=== PATIENT | male | born 1995 | race Caucasian/White ===

== ENCOUNTER 2016-10-22 03:38 | Inpatient (IN) | payer OTHER ==
[~2016-10-22] VITALS: Ht 167.6 cm; Wt 84.7 kg
[2016-10-22 04:07] LABS: MEAN CORPUSCULAR HEMOGLOBIN 29.4 pg (27.0-33.0); MEAN CORPUSCULAR HGB CONC 33.8 g/dl (32.0-36.5); MEAN CORPUSCULAR VOLUME 86.8 fl (80.0-96.0); RED CELL DISTRIBUTION WIDTH 13.2 % (11.5-14.5); WHITE BLOOD COUNT 13.4 K/mm3 (4.0-10.0)
[2016-10-22 04:47] LABS: ALBUMIN 4.5 GM/DL (3.2-5.2); ALBUMIN/GLOBULIN RATIO 1.45 (1.00-1.93); ALKALINE PHOSPHATASE 130 U/L (45-117); ALT/SGPT 33 U/L (12-78); ANION GAP 10 MEQ/L (8-16); AST/SGOT 14 U/L (15-37); BILIRUBIN,DIRECT 0.1 MG/DL (0.0-0.2); BILIRUBIN,TOTAL 0.4 MG/DL (0.2-1.0); BLOOD UREA NITROGEN 17 MG/DL (7-18); CARBON DIOXIDE LEVEL 26 MEQ/L (21-32); CHLORIDE LEVEL 106 MEQ/L (98-107); CREATININE FOR GFR 1.14 MG/DL (0.70-1.30); GLOMERULAR FILTRATION RATE > 60.0 (>60); GLUCOSE, FASTING 120 MG/DL (70-105); POTASSIUM SERUM 4.1 MEQ/L (3.5-5.1); SODIUM LEVEL 142 MEQ/L (136-145); TOTAL PROTEIN 7.6 GM/DL (6.4-8.2)
[2016-10-22 05:14] LABS: AMPHETAMINES LEVEL URINE NEGATIVE (NEGATIVE); BENZODIAZEPINES URINE NEGATIVE (NEGATIVE); COCAINE METABOLITE URINE NEGATIVE (NEGATIVE); CONTROL LINE INT CTR LINE PRESENT; METHADONE URINE NEGATIVE (NEGATIVE); OPIATES URINE NEGATIVE (NEGATIVE); TRICYCLIC ANTIDEPRESS URINE NEGATIVE (NEGATIVE)
[2016-10-22] MEDS ORDERED: MOM 30ML SUSPENSION UDC PO PRN (06:00)
[2016-10-22] MEDS ORDERED: MAALOX 30 ML SUSP *UDC PO PRN (06:00)
[2016-10-22] MEDS ORDERED: LORazepam 1 MG TAB PO PRN (06:00)
--- NOTE | 2016-10-22 09:24 | EDDOCDS ---
Physician Documentation [facility] Name: Ro Smith Age: 21 yrs Sex: Male : 1995 Arrival Date: 10/22/2016 Time: 03:[address] MD: Disposition: 10/22/16 05:56 Hospitalization ordered by Rafat Keane for Inpatient Admission. Preliminary diagnosis is Major depressive disorder, recurrent, moderate. - Bed requested for Admit. - Status is Inpatient Admission. dy - Condition is Stable. - Problem is new. - Symptoms have improved. Historical: - Allergies: Biaxin; - Home Meds: 1. none - PMHx: Depression; - PSHx: Adenoidectomy; Tonsillectomy; Tubes in ears; infected lymph node in neck; - Social history: Smoking status: Patient states was never smoker of tobacco. No barriers to communication noted. - Family history: Not pertinent. - : The pt / caregiver states he / she is not on anticoagulants. Home medication list is obtained from the patient. - Exposure Risk Screening:: None identified. Vital Signs: 10/22 03:50 Weight 68.04 kg / 150 lbs; Height 5 ft. 6 in. (167.64 cm); [facility] 03:52 BP 151 / 90; Pulse 98; Resp 20; Temp 99.0(T); Pulse Ox 96% ; m 09:19 BP 127 / 74; Pulse 92; Resp 16; Temp 98.9(T); Pulse Ox 99% on R/A; dy 03:50 Body Mass Index 24.21 (68.04 kg, 167.64 cm) [facility] MDM: 03:43 Consult PFS/PSA/Vest Baster ordered. fg 03:43 Consult PFS/PSA/Vest Baster: Patient's case requires discussion with on-call fg Psychiatrist ordered. 03:43 PSA/PFS to call Nursing Second Mate, to enter patient data on [place] Safe Act if patient fg involuntarily admitted or transferred for SI or HI ordered. 03:43 Confirm accurate psychiatric medication list and times of last dosage ordered. fg 03:43 Detain Pt Until Medically/PFS Cleared ordered. fg 03:44 Acetaminophen Level Ordered. EDMS 03:44 Basic Metabolic Profile Ordered. EDMS 03:44 Complete Blood Count Ordered. EDMS 03:44 Drug Eval Toxicology ED Only Ordered. EDMS 03:44 Ethyl Alcohol (ethanol) Ordered. EDMS 03:44 Liver Profile Ordered. EDMS 03:44 Salicylate Level Ordered. EDMS 03:44 Thyroid Stimulating Hormone Ordered. EDMS 04:16 Financial registration complete. hs2 04:17 [facility] Payment Agreement was scanned into [employer] and attached to record. hs2 05:14 REGULAR DIET PLASTIC TRUONG+DIET ordered. EDMS 05:22 Consult PFS/PSA/Vest Baster complete. cl 05:22 Consult PFS/PSA/Vest Baster: Patient's case requires discussion with on-call cl Psychiatrist complete. 05:22 PSA/PFS to call Nursing Second Mate, to enter patient data [place] Safe [place] if patient cl involuntarily admitted or transferred for SI or HI complete. 05:56 Admit to IMHU: ordered. EDMS 05:56 REGULAR DIET ordered. EDMS 05:57 [facility] Legal paperwork was scanned into [employer] and attached to record. cl Signatures: Dispatcher [employer] EDW[place] Nish Randall, PSA PSA cl Darrel Mcnamara RN RN dy Hafner, Jane, RN RN Iris Whitaker MD MD Cailin Carvalho, Reg Reg hs2 The chart was reviewed and I authenticate all verbal orders and agree with the evaluation and treatment provided.Attachments: 04:17 [facility] Payment Agreement hs2 MTDD
--- NOTE | 2016-10-22 09:24 | EDDOCDS ---
Nurse's Notes [facility] Name: Ro Smith Age: 21 yrs Sex: Male : 1995 Arrival Date: 10/22/2016 Time: 03:[address] MD: Diagnosis: Major depressive disorder, recurrent, moderate Presentation: 10/22 03:48 Presenting complaint: Patient states: I'm suicidal, I have been for about a month and a [facility] half, thinking of having a car accident. Mental Health Triage Level: Level 2: The patient displays active suicidal ideations. Adult Sepsis Screening: The patient does not have new or worsening altered mentation. Patient's respiratory rate is less than 22. Systolic blood pressure is greater than 100. Patient has a qSOFA score of 0- Negative Sepsis Screen. Suicide/Homicide risk assessment- The patient reports that he/she has a prior history of suicide attempt and/or organized plan. 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 Transition of care: patient was not received from another setting of care. 03:48 Acuity: DAISY Level 3 [facility] 03:48 Method Of Arrival: Walkin/Carried/Asstd [facility] Triage Assessment: 03:50 General: Appears in no apparent distress, Behavior is cooperative, flat. Pain: Denies [facility] pain. HIV screening NA for this visit Offered previously. The patient is triaged at the bedside. See Assessment in Nurses Notes section of ED record. Neurological: Level of Consciousness is awake, alert, Oriented to person, place, time. Respiratory: Airway is patent Respiratory effort is even, unlabored, Respiratory pattern is regular, symmetrical. Derm: Skin is pink, warm & dry. Musculoskeletal: Range of motion intact in all extremities. Historical: - Allergies: Biaxin; - Home Meds: 1. none - PMHx: Depression; - PSHx: Adenoidectomy; Tonsillectomy; Tubes in ears; infected lymph node in neck; - Social history: Smoking status: Patient states was never smoker of tobacco. No barriers to communication noted. - Family history: Not pertinent. - : The pt / caregiver states he / she is not on anticoagulants. Home medication list is obtained from the patient. - Exposure Risk Screening:: None identified. Screenin:52 Screening information is obtained from the patient. Fall risk: No risks identified. [facility] Assistance ADL's: requires no assistance with activities of daily living. Abuse/DV Screen: The patient / caregiver reports he/she is: not in a situation that causes fear, pain or injury. Nutritional screening: No deficits noted. Advance Directives: There is no active DNR order. home support is adequate. Assessment: 03:51 General: Appears in no apparent distress, comfortable, well nourished, well groomed, slm Behavior is anxious. General: chain of command in room . Respiratory: Airway is patent Respiratory effort is even, unlabored. Derm: Skin is pink, warm & dry. 03:52 General: see bedside triage assessment. [facility] 04:05 Pain: Denies pain. Neurological: No deficits noted. EENT: No deficits noted. cf2 Cardiovascular: No deficits noted. GI: No deficits noted. : No deficits noted. Musculoskeletal: No deficits noted. Injury Description: No known injury. 05:06 General: Appears in no apparent distress, Behavior is flat, quiet. General: pt resting slm on stretcher security aid observing . Pain: Denies pain. Neurological: No deficits noted. Level of Consciousness is awake, alert, obeys commands. Respiratory: Airway is patent Respiratory effort is even, unlabored. Derm: Skin is pink, warm & dry. 05:58 Reassessment: Patient appears in no apparent distress at this time. General: Appears to slm be sleeping. Behavior is cooperative. General: security observing . Respiratory: Airway is patent Respiratory effort is even, unlabored. Derm: Skin is pink, warm & dry. 06:45 Reassessment: Patient appears in no apparent distress at this time. General: Appears slm comfortable, Behavior is flat. General: pt resting on stretcher awaiting admission security observing . Respiratory: Airway is patent Respiratory effort is even, unlabored. 07:45 General: Appears in no apparent distress, comfortable, Behavior is appropriate for age, dy cooperative. 08:45 General: Appears in no apparent distress, comfortable, Behavior is appropriate for age, dy cooperative. 08:45 Pain: Denies pain. Neurological: No deficits noted. Respiratory: Airway is patent dy Respiratory effort is even, unlabored. 09:22 General: Appears in no apparent distress, comfortable, Behavior is appropriate for age, dy cooperative. Pain: Denies pain. Respiratory: No deficits noted. 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 Referral Information: cl Evaluation referral is generated by [facility]. The patient was referred for evaluation because Pt expressing SI with plan.. 04:39 [facility] Behavioral Health: The patient is not an established patient of [facility] Behavioral Health. Subjective: The patients chief complaint is Pt is [employer] x 2 1/2 years with one deployment to [place](denies any combat experiences/PTSD), x 1 year, brought to ED by [facility] after pt expressed SI with plan for MVC. Pt appears depressed, poor eye contact, states he "did something really stupid yesterday" and was processed last night at M.P. station, will not elaborate on charges/issues, "I don't want to talk about that right now". Per escort pt. possibly being charged for accessing inappropriate material, found on his phone?(Police apparently have pt.'s phone) Pt however reports feeling depressed x 1 year "since my divorce", also feeling depressed ("stuck") at [place], "I hate my job", has no support in area, family is in [place]. Pt c/o "too much sleep", poor concentration and low energy, denies HI/AH/VH/substance abuse, denies prior psych admissions or suicide attempts, states his plan for suicide was to "wreck my car, hopefully go fast enough". Pt has been in tx at [facility], no current medications.. Delusions are denied. Patient's mood is depressed, Hallucinations are denied. Subjective: Pt reports mother has hx of Bipolar d/o. Mental Health history: depression, Mental Health Admissions: None. Current Outpatient Mental Health Services: Psychiatrist / Agency: [facility]. Current living environment is The patient is . Patient presents to Emergency Department with the following symptoms within the past 2 weeks: antisocial behavior, depressed mood, feelings of helplessness/hopelessness, poor concentration, sleep disturbance - excessive sleeping, suicidal ideation with plan for motor vehicle crash. Substance abuse: Pt denies. Mental status exam: Patients appearance is appropriate, Patient's behavior is superficially cooperative Speech is slow. Affect is blunted Mood is depressed. Hallucinations are denied. Appetite is normal. Memory is good. Energy level is tires easily. Content of thought is depressive. depressive Thought process is intact. Cognitive level is oriented to person, place, time and situation Patient's insight is fair. Judgement is fair. Rapport with interviewer is guarded. Suicidal Ideation present with a plan to kill self by motor vehicle crash. Homicidal ideation is not present. 05:18 Disposition: Medically cleared for disposition by Iris Alvarez MD Psychiatric Consult cl is performed by phone with Dr Rafat Keane. [facility] Admission Criteria: The patient is experiencing suicidal ideation. The patient displays symptoms of severe psychiatric disorder resulting in disordered behavior and significant interference with his / her ability to maintain self care. Psychomotor Retardation. The patient requires continuous observation and/or control to protect self, others or property. The patient's care requires a multi-modal treatment plan under close supervision and coordination due to the complexity and severity of the patient's symptoms. Legal Status: Patient's legal status will be Emergency admission: . [place] Safe Act: [place] Safe Act is applicable to this patient. The patient poses a risk to self or other and the Nursing Train Operations Manager has been notified. He/She will enter the patient's data. DSM-V Differential Diagnosis: Unspecified Depressive Disorder (F32.9). Insurance Pre-Certification: Not Required. Family Notification: Family notified of admission to [facility], Notification was given to BORIS at bedside. 08:57 Awaiting: transfer to [facility]. Vital Signs: 03:50 Weight 68.04 kg; Height 5 ft. 6 in. (167.64 cm); h 03:52 BP 151 / 90; Pulse 98; Resp 20; Temp 99.0(T); Pulse Ox 96% ; m 09:19 BP 127 / 74; Pulse 92; Resp 16; Temp 98.9(T); Pulse Ox 99% on R/A; dy 03:50 Body Mass Index 24.21 (68.04 kg, 167.64 cm) [facility] Vitals: 03:50 Log In Time: October 22, 2016 at 03:38. [facility] ED Course: 03:40 Patient visited by Silvia Fagan. gjb 03:40 Patient moved to Waiting gjb 03:41 Patient moved to [address] 03:43 Melanie Patiño,RN is Primary Nurse. cf2 03:43 Iris Alvarez MD is Attending Physician. fg 03:45 Patient visited by Iris Alvarez MD. fg 03:49 Triage Initiated [facility] 03:52 The patient / caregiver is instructed regarding the plan of care and ED course. cj Accompanied by escort, Patient has correct armband on for positive identification. Placed in psych safe attire. 03:53 Patient visited by Louisa Lr LPN. slm 04:04 Patient visited by Melanie Patiño,SENA. cf2 04:04 No IV's were initiated during this patient's visit. No procedures done that require slm assistance. Labs drawn. (by ED staff). Sent per order to lab. 04:17 [facility] Payment Agreement was scanned into [employer] and attached to record. hs2 04:17 Psych Safety Check: Location: Psych Room. Visual Assessment: Cooperative. jlm 04:18 Patient visited by Lennie Orlando Unit Clerk. jlm 04:28 Patient visited by Lennie Orlando Unit Clerk. jlm 04:28 Psych Safety Check: Location: Psych Room. Visual Assessment: Cooperative. jlm 04:45 Psych Safety Check: Location: Psych Room. Visual Assessment: Restless. jlm 04:47 Patient visited by Lennie Orlando Unit Clerk. jlm 05:01 Drug Eval Toxicology ED Only Sent. slm 05:04 Patient visited by Lennie Orlando Unit Clerk. jlm 05:04 Psych Safety Check: Location: Psych Room. Visual Assessment: Cooperative. jlm 05:07 Patient visited by Louisa Lr LPN. slm 05:29 Patient visited by Lennie Orlando Unit Clerk. jlm 05:49 Patient visited by Lennie Orlando Unit Clerk. jlm 05:56 Rafat Keane is Hospitalizing Provider. fg 05:57 [facility] Legal paperwork was scanned into [employer] and attached to record. cl 05:58 Patient visited by Lennie Orlando Unit Clerk. jlm 05:58 Patient visited by Louisa Lr LPN. slm 06:12 Patient visited by Lennie Orlando Unit Clerk. jlm 06:13 Patient visited by Melanie Patiño,SENA. cf2 06:28 Lights dimmed. Warm blanket given. Psych Safety Check: Location: Psych Room. Visual jlm Assessment: Sleeping. 06:29 Patient visited by Lennie Orlando Link Trainer Maintenance Man. jlm 06:46 Patient visited by Louisa Lr LPN. slm 06:55 Psych Safety Check: Location: Psych Room. Visual Assessment: Sleeping. jlm 06:56 Patient visited by Lennie Orladno Link Trainer Maintenance Man. jlm 07:15 Psych Safety Check: Location: Psych Room. Visual Assessment: Cooperative. pjf 07:18 Patient visited by Porter Salter Security Aide. pjf 07:38 Patient visited by Porter Salter Security Aide. pjf 07:48 Patient visited by Porter Salter Security Aide. pjf 07:53 Patient visited by Porter Salter Security Aide. pjf 08:15 Patient visited by Porter Salter Security Aide. pjf 08:28 Patient visited by Porter Salter Security Aide. pjf 08:43 Patient visited by Porter Salter Security Aide. pjf 08:58 Patient visited by Porter Salter Security Aide. pjf Attachments: 05:57 E Legal paperwork cl Order Results: Lab Order: Acetaminophen Level; SPEC'M 10/22/16 04:00 Test: ACETAMINOPHEN LEVEL; Value: < 2.0; Range: 10.0-30.0; Abnormal: Below low normal; Units: UG/ML; Status: F Lab Order: Basic Metabolic Profile; SPEC'M 10/22/16 04:00 Test: GLUCOSE, FASTING; Value: 120; Range: 70-105; Abnormal: Above high normal; Units: MG/DL; Status: F Test: BLOOD UREA NITROGEN; Value: 17; Range: 7-18; Units: MG/DL; Status: F Test: CREATININE FOR GFR; Value: 1.14; Range: 0.70-1.30; Units: MG/DL; Status: F Test: GLOMERULAR FILTRATION RATE; Value: > 60.0; Range: >60; Status: F Test: SODIUM LEVEL; Value: 142; Range: 136-145; Units: MEQ/L; Status: F Test: POTASSIUM SERUM; Value: 4.1; Range: 3.5-5.1; Units: MEQ/L; Status: F Test: CHLORIDE LEVEL; Value: 106; Range: 98-107; Units: MEQ/L; Status: F Test: CARBON DIOXIDE LEVEL; Value: 26; Range: 21-32; Units: MEQ/L; Status: F Test: ANION GAP; Value: 10; Range: 8-16; Units: MEQ/L; Status: F Test: CALCIUM LEVEL; Value: 9.0; Range: 8.5-10.1; Units: MG/DL; Status: F Test Note: ; Units are mL/min/1.73 m2 Chronic Kidney Disease Staging per NKF: Stage I & II GFR >=60 Normal to Mildly Decreased Stage III GFR 30-59 Moderately Decreased Stage IV GFR 15-29 Severely Decreased Stage V GFR <15 Very Little GFR Left ESRD GFR <15 on VIDEO GAME CREATOR Lab Order: Complete Blood Count; SPEC'10/22/16 04:00 Test: WHITE BLOOD COUNT; Value: 13.4; Range: 4.0-10.0; Abnormal: Above high normal; Units: K/mm3; Status: F Test: RED BLOOD COUNT; Value: 5.46; Range: 4.30-6.10; Units: M/mm3; Status: F Test: HEMOGLOBIN; Value: 16.0; Range: 14.0-18.0; Units: g/dl; Status: F Test: HEMATOCRIT; Value: 47.4; Range: 42.0-52.0; Units: %; Status: F Test: MEAN CORPUSCULAR VOLUME; Value: 86.8; Range: 80.0-96.0; Units: fl; Status: F Test: MEAN CORPUSCULAR HEMOGLOBIN; Value: 29.4; Range: 27.0-33.0; Units: pg; Status: F Test: MEAN CORPUSCULAR HGB CONC; Value: 33.8; Range: 32.0-36.5; Units: g/dl; Status: F Test: RED CELL DISTRIBUTION WIDTH; Value: 13.2; Range: 11.5-14.5; Units: %; Status: F Test: PLATELET COUNT, AUTOMATED; Value: 288; Range: 150-450; Units: k/mm3; Status: F Lab Order: Drug Eval Toxicology ED Only; SPEC'10/22/16 03:59 Test: AMPHETAMINES LEVEL URINE; Value: NEGATIVE; Range: NEGATIVE; Status: F Test: BARBITURATES URINE; Value: NEGATIVE; Range: NEGATIVE; Status: F Test: BENZODIAZEPINES URINE; Value: NEGATIVE; Range: NEGATIVE; Status: F Test: CANNABINOIDS URINE; Value: NEGATIVE; Range: NEGATIVE; Status: F Test: COCAINE METABOLITE URINE; Value: NEGATIVE; Range: NEGATIVE; Status: F Test: METHADONE URINE; Value: NEGATIVE; Range: NEGATIVE; Status: F Test: OPIATES URINE; Value: NEGATIVE; Range: NEGATIVE; Status: F Test: TRICYCLIC ANTIDEPRESS URINE; Value: NEGATIVE; Range: NEGATIVE; Status: F Test Note: ; ALL PRESUMPTIVE POSITIVE FINDINGS ARE UNCONFIRMED NORMAL VALUES THRESHOLD IN NG/ML AMPHETAMINES 1000 METHAMPHETAMINES 1000 BARBITURATES 300 BENZODIAZEPINES 300 CANNABINOIDS (THC) 50 COCAINE METABOLITE 300 METHADONE 300 OPIATES 300 PHENCYCLIDINE 25 TRICYCLIC ANTIDEPRESSANTS 1000 RESULTS ARE FOR MEDICAL PURPOSES ONLY. ALL URINE SPECIMENS WILL BE SAVED FOR 3 DAYS. IF CONFIRMATION OF A PRESUMPTIVE POSTIVE SCREEN RESULT IS DESIRED, CALL CHEMISTRY ([phone]) AND REQUEST URINE TO BE SENT TO REFERENCE LAB. FOR A LIST OF CLOSELY RELATED COMPOUNDS PLEASE CALL THE LAB. Lab Order: Ethyl Alcohol (ethanol); SPEC'M 10/22/16 04:00 Test: ETHYL ALCOHOL (ETHANOL); Value: < 0.003; Range: 0.000-0.010; Units: %; Status: F Lab Order: Liver Profile; SPEC'M 10/22/16 04:00 Test: AST/SGOT; Value: 14; Range: 15-37; Abnormal: Below low normal; Units: U/L; Status: F Test: ALT/SGPT; Value: 33; Range: 12-78; Units: U/L; Status: F Test: ALKALINE PHOSPHATASE; Value: 130; Range: 45-117; Abnormal: Above high normal; Units: U/L; Status: F Test: BILIRUBIN,TOTAL; Value: 0.4; Range: 0.2-1.0; Units: MG/DL; Status: F Test: BILIRUBIN,DIRECT; Value: 0.1; Range: 0.0-0.2; Units: MG/DL; Status: F Test: TOTAL PROTEIN; Value: 7.6; Range: 6.4-8.2; Units: GM/DL; Status: F Test: ALBUMIN; Value: 4.5; Range: 3.2-5.2; Units: GM/DL; Status: F Test: ALBUMIN/GLOBULIN RATIO; Value: 1.45; Range: 1.00-1.93; Status: F Lab Order: Salicylate Level; SPEC'M 10/22/16 04:00 Test: SALICYLATE LEVEL; Value: < 1.7; Range: 5.0-30.0; Abnormal: Below low normal; Units: MG/DL; Status: F Lab Order: Thyroid Stimulating Hormone; SPEC'M 10/22/16 04:00 Test: THYROID STIMULATING HORMONE; Value: 4.180; Range: 0.358-3.740; Abnormal: Above high normal; Units: uIU/ML; Status: F Outcome: 04:04 Property removed, inventory done, secured in belongings bag- placed in locked locker. slm 04:35 Discharge Assessment: patient administered narcotics - no. No special radiology studies slm were completed. 05:56 Decision to Hospitalize by Provider. fg 09:19 The following High Risk Discharge criteria are identified: None. Admitted to Psych dy accompanied by tech, via wheelchair, with chart. Condition: stable. 09:23 Patient left the ED. dy Signatures: Tyler Montague, PSA PSA Nish Parra, PSA PSA Porter Flood, Security Aide SecanastasiyapDarrle Johnston, RN RN Deborah Arias,RN RN timi Louisa Lr,COFFEE ROASTER HELPER COFFEE ROASTER HELPER Lennie Reed, Link Trainer Maintenance Man Unit Iris Segundo MD MD fg Beck, Gabriela gjb Stanton, Hillary, Reg Reg hs2 Melanie Patiño,RN RN cf2 [id number]
--- NOTE | 2016-10-22 12:44 | HPEPDOC ---
Medical History and Physical Date of Admission Oct 22, 2016 at 10:05 History and Physical PCP: [facility] ATTENDING: Dr. Darrel Wong HPI: 21yoM admitted to [facility] for MDD, being medically examined today. No acute medical complaints today. Denies any fevers, chills, weakness, fatigue, ORTIZ, CP, SOB, cough, palpitations, abdominal pain, N/V/D or changes in bowel or bladder habits. 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 ROS: As noted in HPI, otherwise 11pt ROS of systems reviewed and unremarkable PE: GEN: 21yoM, appears stated age. Well-nourished, well developed. No acute distress. Alert and oriented x 3. Pleasant, interactive. HEENT: Normocephalic, atraumatic. Pupils are equal, round, and reactive to light. Extraocular movements are intact. No nystagmus appreciated. Sclera are nonicteric. Conjunctiva without injection. Nose midline. Nasal turbinates without bogginess. EACs both patent BL. TMs both visualized and ward with good cone of light, no bulging or erythema. No facial asymmetry. Moist mucous membranes. Dentition fair. Pharynx pink and moist, no cobblestoning. Neck supple , trachea midline. No lymphadenopathy or thyromegaly appreciated. CHEST: Regular rate and rhythm, +S1, +S2 LUNGS: Clear to auscultation bilaterally. No wheezes, rales, or rhonchi. Breathing appears symmetric and easy. Patient is speaking in full sentences. No accessory muscle use. ABD: Round, soft, non-tender, non-distended. +Bowel sounds throughout. No rebound or guarding. No costovertebral angle tenderness. EXT: Pulses 2+ bilaterally dorsalis pedis and radial. No lower extremity edema appreciated. SKIN: Gypsy, dry, warm. Capillary refill <2sec. No rashes. NEURO: Alert and oriented x 3. Cranial nerves III-XII are intact. No focal deficits appreciated. EKG: pending. A&P: 21yoM admitted to [facility] for MDD 1. Psych. Plan per Psychiatry. Obtain baseline EKG to assure the safety of psychiatric medications as they can prolong the QT interval. 2. Leukocytosis. Patient is afebrile. Asymptomatic. Recheck CBC 3. Follow up with PCP on discharge. [facility] 4. Elevated TSH. Recheck TSH and free T4 5. Staff member present throughout exam, Roshan Moran. Vital Signs Vital Signs Label Value Date Time Patient Temperature 98.9 degrees F 10/22/16 1448 Pulse 92 10/22/16 1448 Respiratory Rate 16 bpm 10/22/16 1448 Blood Pressure Assessment 127/74 (91) 10/22/16 1448 Laboratory Data Labs 24H Laboratory Tests 2 10/22/16 03:59: Urine Amphetamine Level NEGATIVE, Urine Benzodiazepines Screen NEGATIVE, Urine Cannabinoids NEGATIVE, Urine Cocaine Metabolite NEGATIVE, Urine Opiates Screen NEGATIVE, Urine Barbiturates, Qualitative NEGATIVE, Urine Methadone Screen NEGATIVE, Urine Tricyclic Antidepressants NEGATIVE 10/22/16 04:00: Acetaminophen Level < 2.0L, Aspartate Amino Transf (AST/SGOT) 14L, Alanine Aminotransferase (ALT/SGPT) 33, Alkaline Phosphatase 130H, Total Bilirubin 0.4, Direct Bilirubin 0.1, Albumin 4.5, Albumin/Globulin Ratio 1.45, Anion Gap 10, Calcium Level 9.0, Ethyl Alcohol Level < 0.003, Glomerular Filtration Rate > 60.0, Salicylates Level < 1.7L, Thyroid Stimulating Hormone (TSH) 4.180H, Total Protein 7.6 CBC/BMP Laboratory Tests 10/22/16 04:00 Red Blood Count 5.46, Mean Corpuscular Volume 86.8, Mean Corpuscular Hemoglobin 29.4, Mean Corpuscular Hemoglobin Concent 33.8, Red Cell Distribution Width 13.2 Home Medications No Active Prescriptions or Reported Meds Allergies Coded Allergies: Clarithromycin (Unverified Allergy, Intermediate, rash, 10/22/16) Zahira Mcdaniels Oct 22, 2016 12:44
[2016-10-22 14:48] VITALS: BP 127/74
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
[2016-10-22 18:00] VITALS: BP 120/68
[2016-10-23 06:21] VITALS: BP 125/69
[2016-10-23 06:59] LABS: MEAN CORPUSCULAR HEMOGLOBIN 30.1 pg (27.0-33.0); MEAN CORPUSCULAR VOLUME 86.1 fl (80.0-96.0); RED CELL DISTRIBUTION WIDTH 12.4 % (11.5-14.5)
[2016-10-23 07:24] LABS: FREE T4 0.98 NG/DL (0.76-1.46)
[2016-10-23] MEDS: buPROPion **XL** TABLET 150MG (WELLBUTRIN XL) PO SCH (12:53)
--- NOTE | 2016-10-23 13:31 | ECGEPIP ---
Stationary ECG Study [facility] Test Date: 2016-10-23 Pat Name: CHERYLE CHAVEZ Department: Room: [place] [address] Gender: M Manager Wound Care: BIBI : 1995 Requested By: Zahira Mcdaniels Order Number: [id number] Reading MD: Darrel Wong Measurements Intervals [place] Rate: 62 P: 42 GA: 159 QRS: 44 QRSD: 105 T: 0 QT: 366 QTc: 372 Interpretive Statements SINUS RHYTHM Comparison tracing not on file Electronically Signed On 10-23-2016 13:30:41 EST by Darrel Wong
--- NOTE | 2016-10-23 14:06 | IPNPDOC ---
[facility] Progress Note Progress Note DATE: 10/23/16 HISTORY: Patient is observed to be up out of bed and in hallway, talking on phone, visible in milieu, and has been attending some groups. Patient indicates he is feeling "a little better today, I spoke with an unpaid intern who gave me some advice and appears to haven't actually been charged yet." Patient is brighter, no tearfulness today, reports 5/10 anxiety, 7/10 depression, denies current suicidal and homicidal ideation, denies audiovisual hallucinations, and denies urge to engage in self-injurious behavior. Patient indicates he last experienced passive SI last night noting he experienced thoughts of "what would be like if I wasn't here, thought about ways that I could do it, but I had no plan and I'm not planning to do it." Patient denies ever experiencing symptoms of HI and denies all recent symptoms of AVH. Patient's labs were redrawn and thyroid and WBCs are now within normal limits, patient indicates he would like to trial antidepressant medication in effort to reduce symptoms of anxiety and depression. Patient indicates his appetite is stable, states he slept well last night and feels "better rested," remains aware that he has trazodone available to him for sleep as needed, denies nightmares symptoms. Patient reports ongoing challenges with concentration and focus, reports improvement to energy level. Patient states his father is attempting to make arrangements to fly to area to visit with patient and patient has had daily contact with his mother via telephone. VITAL SIGNS: See below. NEW TEST RESULTS: New lab results available on TSH and WBC, within normal limits. On admission, labs indicated elevated WBC, glucose, TSH, alkaline phosphatase. Leukocytosis, patient is afebrile and asymptomatic. AST low on admission. UDS negative on admission. CURRENT MEDICATIONS: See below. MEDICAL HISTORY: Patient denies history of seizure, endorses history of concussions in high school from football, notes he was evaluated by PCM. Patient endorses history of kidney stones and being treated for rhabdomyolysis in past. MENTAL STATUS EXAMINATION: Patient is a 21-year old male, who is cooperative, calm, less disheveled today, overweight, dressed in hospital clothing and appears stated age. Speech: Is normal rate, rhythm, volume, coherent, and spontaneous Thought processes: Clear, goal directed. Rate of thoughts: Normal Thought content: Logical, denies current suicidal or homicidal ideation, denies audiovisual hallucinations and other psychotic symptoms, denies obsessions and compulsions. Abstract reasoning: Within normal limits. Computation: Within normal limits. Associations: Intact. Abnormal or psychotic thoughts: Denies current hallucinations, Delusions, Preoccupation with violence, Homicidal or suicidal ideation, and Obsessions. Judgment: Poor Insight: Fair to poor Oriented to: Time, place and person. Recent and Remote Memory: Intact. Attention Span and Concentration: Limited. Language: Normal. Fund of knowledge: Adequate. 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 Patient is more visible in milieu today and is easily engaged at time of interaction. Patient expresses notable marginal reduction in anxiety secondary to speaking with unpaid intern regarding recent legal events. Patient denies suicidal and homicidal ideation and is able to effectively engage in the safety planning process verbalizing awareness of how to access supportive services on the unit and agreeing to do so if needed. Patient was encouraged to continue participating in unit programming. Patient's repeat lab work indicate TSH and WBCs within normal limits, patient is agreeable to trialing antidepressant medication today, expresses concerns with weight gain. Patient again denies history of mood lability or bipolar disorder. Patient remains aware that he has trazodone and hydroxyzine available to him as needed. Will initiate med trial of Wellbutrin XL 150 mg po q am and will monitor patient's response to medication and titrate as tolerated by patient. Patient reiterates today he wants to be released from the [employer] noting he does not want to some honorable discharge, remains aware that his discharge plan will be to return to [facility] for psychotherapy and medication management services, YELITZA, and IOP evaluation. MANAGEMENT PLAN: Initiate Wellbutrin XL 150 mg by mouth every morning, continue trazodone 50 mg po hs PRN insomnia and Hydroxyzine 50 mg po q 6 hours PRN anxiety Encourage patient to be compliant with medication regimen Maintain safety precautions Patient to attend groups and participate in unit programming to develop coping strategies Engage patient in discharge planning process and arrange meeting with command to evaluate safe discharge planning when appropriate Shoot to attend [place] outpatient behavioral health, YELITZA, and IOP Patient to follow up with [place] [facility] upon discharge Vital Signs/I&O Vital Signs Date Time Temp Pulse Resp B/P Pulse Ox O2 Delivery O2 Flow Rate FiO2 10/23/16 06:21 96.2 87 16 125/69 Laboratory Data 24H Labs Laboratory Tests 2 10/23/16 06:30: Free Thyroxine 0.98, Thyroid Stimulating Hormone (TSH) 2.840 CBC/BMP Laboratory Tests 10/23/16 06:30 Red Blood Count 5.14, Mean Corpuscular Volume 86.1, Mean Corpuscular Hemoglobin 30.1, Mean Corpuscular Hemoglobin Concent 35.0, Red Cell Distribution Width 12.4 Current Medications Current Medications Acetaminophen (Tylenol) 650 mg Q6HP PRN PO HEADACHE or DISCOMFORT; Start at 06:00; Stop 11/21/16 at 05:59 Al Hydrox/Mg Hydrox/Simethicone (Mylanta) 30 ml Q4HP PRN PO HEARTBURN/ INDIGESTION; Start 10/22/16 at 06:00; Stop 11/21/16 at 05:59 Bupropion HCl (Wellbutrin Xl) 150 mg QAM PO Last administered on 10/23/16t 12: 53; Start 10/23/16 at 09:00; Stop 11/22/16 at 08:59 Home Med (Med Rec Complete!) ASDIRECTED XX ; Start 10/22/16 at 07:00; Stop 08/28 at 07:00; Status DC Hydroxyzine HCl (Atarax) 50 mg Q6HP PRN PO ANXIETY; Start 10/22/16 at 12:30; Stop 11/21/16 at 12:29 Lorazepam (Ativan) 1 mg Q4HP PRN PO ANXIETY; Start 10/22/16 at 06:00; Stop at 05:59 Magnesium Hydroxide (Milk Of Magnesia) 30 ml DAILYPRN PRN PO CONSTIPATION; Start 10/22/16 at 06:00; Stop 11/21/16 at 05:59 Trazodone HCl (Desyrel) 50 mg QHSP PRN PO INSOMNIA; Start 10/22/16 at 06:00; Stop 11/21/16 at 05:59 Allergies Coded Allergies: Clarithromycin (Unverified Allergy, Intermediate, rash, 10/22/16) Griselda Bang Oct 23, 2016 14:06
[2016-10-23 18:00] VITALS: BP 135/68
[2016-10-23] MEDS: traZODone 50 MG TAB PO PRN (22:57)
[2016-10-24 06:15] VITALS: BP 103/58
[2016-10-24] MEDS: buPROPion **XL** TABLET 150MG (WELLBUTRIN XL) PO SCH (09:27)
--- NOTE | 2016-10-24 10:24 | EDDOCDS ---
Physician Documentation [facility] Name: Ro Smith Age: 21 yrs Sex: Male : 1995 Arrival Date: 10/22/2016 Time: 03:[address] MD: Disposition: 10/22/16 05:56 Hospitalization ordered by Rafat Keane for Inpatient Admission. Preliminary diagnosis is Major depressive disorder, recurrent, moderate. - Bed requested for Admit. - Status is Inpatient Admission. dy - Condition is Stable. - Problem is new. - Symptoms have improved. Historical: - Allergies: Biaxin; - Home Meds: 1. none - PMHx: Depression; - PSHx: Adenoidectomy; Tonsillectomy; Tubes in ears; infected lymph node in neck; - Social history: Smoking status: Patient states was never smoker of tobacco. No barriers to communication noted. - Family history: Not pertinent. - : The pt / caregiver states he / she is not on anticoagulants. Home medication list is obtained from the patient. - Exposure Risk Screening:: None identified. Vital Signs: 10/22 03:50 Weight 68.04 kg / 150 lbs; Height 5 ft. 6 in. (167.64 cm); [facility] 03:52 BP 151 / 90; Pulse 98; Resp 20; Temp 99.0(T); Pulse Ox 96% ; m 09:19 BP 127 / 74; Pulse 92; Resp 16; Temp 98.9(T); Pulse Ox 99% on R/A; dy 03:50 Body Mass Index 24.21 (68.04 kg, 167.64 cm) [facility] MDM: 03:43 Consult PFS/PSA/Self Defense Instructor ordered. fg 03:43 Consult PFS/PSA/Self Defense Instructor: Patient's case requires discussion with on-call fg Psychiatrist ordered. 03:43 PSA/PFS to call Nursing Mold Operator, to enter patient data on [place] Safe Act if patient fg involuntarily admitted or transferred for SI or HI ordered. 03:43 Confirm accurate psychiatric medication list and times of last dosage ordered. fg 03:43 Detain Pt Until Medically/PFS Cleared ordered. fg 03:44 Acetaminophen Level Ordered. EDMS 03:44 Basic Metabolic Profile Ordered. EDMS 03:44 Complete Blood Count Ordered. EDMS 03:44 Drug Eval Toxicology ED Only Ordered. EDMS 03:44 Ethyl Alcohol (ethanol) Ordered. EDMS 03:44 Liver Profile Ordered. EDMS 03:44 Salicylate Level Ordered. EDMS 03:44 Thyroid Stimulating Hormone Ordered. EDMS 04:16 Financial registration complete. hs2 04:17 [facility] [place] Agreement was scanned into [employer] and attached to record. hs2 05:14 REGULAR DIET PLASTIC TRUONG+DIET ordered. EDMS 05:22 Consult PFS/PSA/Self Defense Instructor complete. cl 05:22 Consult PFS/PSA/Self Defense Instructor: Patient's case requires discussion with on-call cl Psychiatrist complete. 05:22 PSA/PFS to call Nursing Mold Operator, to enter patient data [place] Safe [place] if patient cl involuntarily admitted or transferred for SI or HI complete. 05:56 Admit to IMHU: ordered. EDMS 05:56 REGULAR DIET ordered. EDMS 05:57 [facility] Legal paperwork was scanned into [employer] and attached to record. cl 13:57 T-Sheet-- Draft Copy was scanned into [employer] and attached to record. gb Signatures: Dispatcher [employer] EDMS Nish Randall, PSA PSA cl Arcelia Worrell, Reg Reg gb Darrel Mcnamara RN RN Deborah AriasRN RN [facility] Iris Alvarez MD MD fg Stanton, Hillary, Reg Reg hs2 The chart was reviewed and I authenticate all verbal orders and agree with the evaluation and treatment provided.Attachments: 04:17 [facility] Payment Agreement hs2 13:57 T-Sheet-- Draft Copy gb Chart Complete MTDD
--- NOTE | 2016-10-24 10:24 | EDDOCDS ---
Physician Documentation [facility] Name: Ro Smith Age: 21 yrs Sex: Male : 1995 Arrival Date: 10/22/2016 Time: 03:[address] MD: Disposition: 10/22/16 05:56 Hospitalization ordered by Rafat Keane for Inpatient Admission. Preliminary diagnosis is Major depressive disorder, recurrent, moderate. - Bed requested for Admit. - Status is Inpatient Admission. dy - Condition is Stable. - Problem is new. - Symptoms have improved. Historical: - Allergies: Biaxin; - Home Meds: 1. none - PMHx: Depression; - PSHx: Adenoidectomy; Tonsillectomy; Tubes in ears; infected lymph node in neck; - Social history: Smoking status: Patient states was never smoker of tobacco. No barriers to communication noted. - Family history: Not pertinent. - : The pt / caregiver states he / she is not on anticoagulants. Home medication list is obtained from the patient. - Exposure Risk Screening:: None identified. Vital Signs: 10/22 03:50 Weight 68.04 kg / 150 lbs; Height 5 ft. 6 in. (167.64 cm); [facility] 03:52 BP 151 / 90; Pulse 98; Resp 20; Temp 99.0(T); Pulse Ox 96% ; m 09:19 BP 127 / 74; Pulse 92; Resp 16; Temp 98.9(T); Pulse Ox 99% on R/A; dy 03:50 Body Mass Index 24.21 (68.04 kg, 167.64 cm) [facility] MDM: 03:43 Consult PFS/PSA/Industrial Relations Director ordered. fg 03:43 Consult PFS/PSA/Industrial Relations Director: Patient's case requires discussion with on-call fg Psychiatrist ordered. 03:43 PSA/PFS to call Nursing Beauty Advisor, to [place] data [place] Safe [place] if patient fg involuntarily admitted or transferred for SI or HI ordered. 03:43 Confirm accurate psychiatric medication list and times of last dosage ordered. fg 03:43 Detain Pt Until Medically/PFS Cleared ordered. fg 03:44 Acetaminophen Level Ordered. EDMS 03:44 Basic Metabolic Profile Ordered. EDMS 03:44 Complete Blood Count Ordered. EDMS 03:44 Drug Eval Toxicology ED Only Ordered. EDMS 03:44 Ethyl Alcohol (ethanol) Ordered. EDMS 03:44 Liver Profile Ordered. EDMS 03:44 Salicylate Level Ordered. EDMS 03:44 Thyroid Stimulating Hormone Ordered. EDMS 04:16 Financial registration complete. hs2 04:17 [facility] Payment Agreement was scanned into [employer] and attached to record. hs2 05:14 REGULAR DIET PLASTIC TRUONG+DIET ordered. EDMS 05:22 Consult PFS/PSA/Industrial Relations Director complete. cl 05:22 Consult PFS/PSA/Industrial Relations Director: Patient's case requires discussion with on-call cl Psychiatrist complete. 05:22 PSA/PFS to call Nursing Beauty Advisor, to [place] data [place] if patient cl involuntarily admitted or transferred for SI or HI complete. 05:56 Admit to IMHU: ordered. EDMS 05:56 REGULAR DIET ordered. EDMS 05:57 [facility] Legal paperwork was scanned into m2fx and attached to record. cl 13:57 T-Sheet-- Draft Copy was scanned into m2fx and attached to record. gb Signatures: Dispatcher [employer] EDMS Nish Randall, PSA PSA cl Arcelia Worrell, Reg Reg gb Darrel Mcnamara RN RN Deborah AriasRN RN [facility] Iris Alvarez MD MD fg Stanton, Hillary, Reg Reg hs2 The chart was reviewed and I authenticate all verbal orders and agree with the evaluation and treatment provided.Attachments: 04:17 [facility] Payment Agreement hs2 13:57 T-Sheet-- Draft Copy gb Chart Complete MTDD
--- NOTE | 2016-10-24 10:24 | EDDOCDS ---
Nurse's Notes [facility] Name: Ro Smith Age: 21 yrs Sex: Male : 1995 Arrival Date: 10/22/2016 Time: 03:[address] MD: Diagnosis: Major depressive disorder, recurrent, moderate Presentation: 10/22 03:48 Presenting complaint: Patient states: I'm suicidal, I have been for about a month and a [facility] half, thinking of having a car accident. Mental Health Triage Level: Level 2: The patient displays active suicidal ideations. Adult Sepsis Screening: The patient does not have new or worsening altered mentation. Patient's respiratory rate is less than 22. Systolic blood pressure is greater than 100. Patient has a qSOFA score of 0- Negative Sepsis Screen. Suicide/Homicide risk assessment- The patient reports that he/she has a prior history of suicide attempt and/or organized plan. 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 Transition of care: patient was not received from another setting of care. 03:48 Acuity: DAISY Level 3 [facility] 03:48 Method Of Arrival: Walkin/Carried/Asstd [facility] Triage Assessment: 03:50 General: Appears in no apparent distress, Behavior is cooperative, flat. Pain: Denies [facility] pain. HIV screening NA for this visit Offered previously. The patient is triaged at the bedside. See Assessment in Nurses Notes section of ED record. Neurological: Level of Consciousness is awake, alert, Oriented to person, place, time. Respiratory: Airway is patent Respiratory effort is even, unlabored, Respiratory pattern is regular, symmetrical. Derm: Skin is pink, warm & dry. Musculoskeletal: Range of motion intact in all extremities. Historical: - Allergies: Biaxin; - Home Meds: 1. none - PMHx: Depression; - PSHx: Adenoidectomy; Tonsillectomy; Tubes in ears; infected lymph node in neck; - Social history: Smoking status: Patient states was never smoker of tobacco. No barriers to communication noted. - Family history: Not pertinent. - : The pt / caregiver states he / she is not on anticoagulants. Home medication list is obtained from the patient. - Exposure Risk Screening:: None identified. Screenin:52 Screening information is obtained from the patient. Fall risk: No risks identified. [facility] Assistance ADL's: requires no assistance with activities of daily living. Abuse/DV Screen: The patient / caregiver reports he/she is: not in a situation that causes fear, pain or injury. Nutritional screening: No deficits noted. Advance Directives: There is no active DNR order. home support is adequate. Assessment: 03:51 General: Appears in no apparent distress, comfortable, well nourished, well groomed, slm Behavior is anxious. General: chain of command in room . Respiratory: Airway is patent Respiratory effort is even, unlabored. Derm: Skin is pink, warm & dry. 03:52 General: see bedside triage assessment. [facility] 04:05 Pain: Denies pain. Neurological: No deficits noted. EENT: No deficits noted. cf2 Cardiovascular: No deficits noted. GI: No deficits noted. : No deficits noted. Musculoskeletal: No deficits noted. Injury Description: No known injury. 05:06 General: Appears in no apparent distress, Behavior is flat, quiet. General: pt resting slm on stretcher security aid observing . Pain: Denies pain. Neurological: No deficits noted. Level of Consciousness is awake, alert, obeys commands. Respiratory: Airway is patent Respiratory effort is even, unlabored. Derm: Skin is pink, warm & dry. 05:58 Reassessment: Patient appears in no apparent distress at this time. General: Appears to slm be sleeping. Behavior is cooperative. General: security observing . Respiratory: Airway is patent Respiratory effort is even, unlabored. Derm: Skin is pink, warm & dry. 06:45 Reassessment: Patient appears in no apparent distress at this time. General: Appears slm comfortable, Behavior is flat. General: pt resting on stretcher awaiting admission security observing . Respiratory: Airway is patent Respiratory effort is even, unlabored. 07:45 General: Appears in no apparent distress, comfortable, Behavior is appropriate for age, dy cooperative. 08:45 General: Appears in no apparent distress, comfortable, Behavior is appropriate for age, dy cooperative. 08:45 Pain: Denies pain. Neurological: No deficits noted. Respiratory: Airway is patent dy Respiratory effort is even, unlabored. 09:22 General: Appears in no apparent distress, comfortable, Behavior is appropriate for age, dy cooperative. Pain: Denies pain. Respiratory: No deficits noted. 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 Referral Information: cl Evaluation referral is generated by [facility]. The patient was referred for evaluation because Pt expressing SI with plan.. 04:39 [facility] Behavioral Health: The patient is not an established patient of [facility] Behavioral Health. Subjective: The patients chief complaint is Pt is [employer] x 2 1/2 years with one deployment to [place](denies any combat experiences/PTSD), x 1 year, brought to ED by [facility] after pt expressed SI with plan for MVC. Pt appears depressed, poor eye contact, states he "did something really stupid yesterday" and was processed last night at M.P. station, will not elaborate on charges/issues, "I don't want to talk about that right now". Per escort pt. possibly being charged for accessing inappropriate material, found on his phone?(Police apparently have pt.'s phone) Pt however reports feeling depressed x 1 year "since my divorce", also feeling depressed ("stuck") at [employer], "I hate my job", has no support in area, family is in [place]. Pt c/o "too much sleep", poor concentration and low energy, denies HI/AH/VH/substance abuse, denies prior psych admissions or suicide attempts, states his plan for suicide was to "wreck my car, hopefully go fast enough". Pt has been in tx at [facility], no current medications.. Delusions are denied. Patient's mood is depressed, Hallucinations are denied. Subjective: Pt reports mother has hx of Bipolar d/o. Mental Health history: depression, Mental Health Admissions: None. Current Outpatient Mental Health Services: Psychiatrist / Agency: [facility]. Current living environment is The patient is . Patient presents to Emergency Department with the following symptoms within the past 2 weeks: antisocial behavior, depressed mood, feelings of helplessness/hopelessness, poor concentration, sleep disturbance - excessive sleeping, suicidal ideation with plan for motor vehicle crash. Substance abuse: Pt denies. Mental status exam: Patients appearance is appropriate, Patient's behavior is superficially cooperative Speech is slow. Affect is blunted Mood is depressed. Hallucinations are denied. Appetite is normal. Memory is good. Energy level is tires easily. Content of thought is depressive. depressive Thought process is intact. Cognitive level is oriented to person, place, time and situation Patient's insight is fair. Judgement is fair. Rapport with interviewer is guarded. Suicidal Ideation present with a plan to kill self by motor vehicle crash. Homicidal ideation is not present. 05:18 Disposition: Medically cleared for disposition by Iris Alvarez MD Psychiatric Consult cl is performed by phone with Dr Rafat Keane. [facility] Admission Criteria: The patient is experiencing suicidal ideation. The patient displays symptoms of severe psychiatric disorder resulting in disordered behavior and significant interference with his / her ability to maintain self care. Psychomotor Retardation. The patient requires continuous observation and/or control to protect self, others or property. The patient's care requires a multi-modal treatment plan under close supervision and coordination due to the complexity and severity of the patient's symptoms. Legal Status: Patient's legal status will be Emergency admission: . [place] Safe Act: [place] Safe Act is applicable to this patient. The patient poses a risk to self or other and the Nursing Grocery Caddy has been notified. He/She will enter the patient's data. DSM-V Differential Diagnosis: Unspecified Depressive Disorder (F32.9). Insurance Pre-Certification: Not Required. Family Notification: Family notified of admission to [facility], Notification was given to BORIS at bedside. 08:57 Awaiting: transfer to [facility]. 09:49 Awaiting: transfer to [facility]. Vital Signs: 03:50 Weight 68.04 kg; Height 5 ft. 6 in. (167.64 cm); [facility] 03:52 BP 151 / 90; Pulse 98; Resp 20; Temp 99.0(T); Pulse Ox 96% ; m 09:19 BP 127 / 74; Pulse 92; Resp 16; Temp 98.9(T); Pulse Ox 99% on R/A; dy 03:50 Body Mass Index 24.21 (68.04 kg, 167.64 cm) [facility] Vitals: 03:50 Log In Time: October 22, 2016 at 03:38. [facility] ED Course: 03:40 Patient visited by Silvia Fagan. gjb 03:40 Patient moved to Waiting gjb 03:41 Patient moved to [address] 03:43 Melanie Patiño,SENA is Primary Nurse. cf2 03:43 Iris Alvarez MD is Attending Physician. fg 03:45 Patient visited by Iris Alvarez MD. fg 03:49 Triage Initiated cj 03:52 The patient / caregiver is instructed regarding the plan of care and ED course. cjh Accompanied by escort, Patient has correct armband on for positive identification. Placed in psych safe attire. 03:53 Patient visited by Louisa Lr LPN. slm 04:04 Patient visited by Melanie Patiño,SENA. cf2 04:04 No IV's were initiated during this patient's visit. No procedures done that require slm assistance. Labs drawn. (by ED staff). Sent per order to lab. 04:17 [facility] Payment Agreement was scanned into [employer] and attached to record. hs2 04:17 Psych Safety Check: Location: Psych Room. Visual Assessment: Cooperative. jlm 04:18 Patient visited by Lennie Orlando Unit Clerk. jlm 04:28 Patient visited by Lennie Orlando Unit Clerk. jlm 04:28 Psych Safety Check: Location: Psych Room. Visual Assessment: Cooperative. jlm 04:45 Psych Safety Check: Location: Psych Room. Visual Assessment: Restless. jlm 04:47 Patient visited by Lennie Orlando Unit Clerk. jlm 05:01 Drug Eval Toxicology ED Only Sent. slm 05:04 Patient visited by Lennie Orlando Unit Clerk. jlm 05:04 Psych Safety Check: Location: Psych Room. Visual Assessment: Cooperative. jlm 05:07 Patient visited by Louisa Lr LPN. slm 05:29 Patient visited by Lennie Orlando Unit Clerk. jlm 05:49 Patient visited by Lennie Orlando Unit Clerk. jlm 05:56 Rafat Keane is Hospitalizing Provider. fg 05:57 [facility] Legal paperwork was scanned into [employer] and attached to record. cl 05:58 Patient visited by Lennie Orlando Unit Clerk. jlm 05:58 Patient visited by Louisa Lr LPN. slm 06:12 Patient visited by Lennie Orlando Unit Clerk. jlm 06:13 Patient visited by Melanie Patiño,SENA. cf2 06:28 Lights dimmed. Warm blanket given. Psych Safety Check: Location: Psych Room. Visual jlm Assessment: Sleeping. 06:29 Patient visited by Lennie Orlando Unit Clerk. jlm 06:46 Patient visited by Louisa Lr LPN. slm 06:55 Psych Safety Check: Location: Psych Room. Visual Assessment: Sleeping. jlm 06:56 Patient visited by Lennie Orlando Unit Clerk. jlm 07:15 Psych Safety Check: Location: Psych Room. Visual Assessment: Cooperative. pjf 07:18 Patient visited by Porter Salter Security Aide. pjf 07:38 Patient visited by Porter Salter Security Aminata. pjf 07:48 Patient visited by Porter Salter Security Aminata. pjf 07:53 Patient visited by Porter Salter Security Aminata. pjf 08:15 Patient visited by Porter Salter Security Aminata. pjf 08:28 Patient visited by Porter Salter Security Aminata. pjf 08:43 Patient visited by Porter Salter Security Aminata. pjf 08:58 Patient visited by Porter Salter Security Aide. pjf 13:57 T-Sheet-- Draft Copy was scanned into [employer] and attached to record. Attachments: 05:57 [facility] Legal paperwork cl Order Results: Lab Order: Acetaminophen Level; SPEC'M 10/22/16 04:00 Test: ACETAMINOPHEN LEVEL; Value: < 2.0; Range: 10.0-30.0; Abnormal: Below low normal; Units: UG/ML; Status: F Lab Order: Basic Metabolic Profile; SPEC'M 10/22/16 04:00 Test: GLUCOSE, FASTING; Value: 120; Range: 70-105; Abnormal: Above high normal; Units: MG/DL; Status: F Test: BLOOD UREA NITROGEN; Value: 17; Range: 7-18; Units: MG/DL; Status: F Test: CREATININE FOR GFR; Value: 1.14; Range: 0.70-1.30; Units: MG/DL; Status: F Test: GLOMERULAR FILTRATION RATE; Value: > 60.0; Range: >60; Status: F Test: SODIUM LEVEL; Value: 142; Range: 136-145; Units: MEQ/L; Status: F Test: POTASSIUM SERUM; Value: 4.1; Range: 3.5-5.1; Units: MEQ/L; Status: F Test: CHLORIDE LEVEL; Value: 106; Range: 98-107; Units: MEQ/L; Status: F Test: CARBON DIOXIDE LEVEL; Value: 26; Range: 21-32; Units: MEQ/L; Status: F Test: ANION GAP; Value: 10; Range: 8-16; Units: MEQ/L; Status: F Test: CALCIUM LEVEL; Value: 9.0; Range: 8.5-10.1; Units: MG/DL; Status: F Test Note: ; Units are mL/min/1.73 m2 Chronic Kidney Disease Staging per NKF: Stage I & II GFR >=60 Normal to Mildly Decreased Stage III GFR 30-59 Moderately Decreased Stage IV GFR 15-29 Severely Decreased Stage V GFR <15 Very Little GFR Left ESRD GFR <15 on INSTRUMENTATION AND CONTROLS DESIGNER Lab Order: Complete Blood Count; [facility]10/[facility] 04:00 Test: WHITE BLOOD COUNT; Value: 13.4; Range: 4.0-10.0; Abnormal: Above high normal; Units: K/mm3; Status: F Test: RED BLOOD COUNT; Value: 5.46; Range: 4.30-6.10; Units: M/mm3; Status: F Test: HEMOGLOBIN; Value: 16.0; Range: 14.0-18.0; Units: g/dl; Status: F Test: HEMATOCRIT; Value: 47.4; Range: 42.0-52.0; Units: %; Status: F Test: MEAN CORPUSCULAR VOLUME; Value: 86.8; Range: 80.0-96.0; Units: fl; Status: F Test: MEAN CORPUSCULAR HEMOGLOBIN; Value: 29.4; Range: 27.0-33.0; Units: pg; Status: F Test: MEAN CORPUSCULAR HGB CONC; Value: 33.8; Range: 32.0-36.5; Units: g/dl; Status: F Test: RED CELL DISTRIBUTION WIDTH; Value: 13.2; Range: 11.5-14.5; Units: %; Status: F Test: PLATELET COUNT, AUTOMATED; Value: 288; Range: 150-450; Units: k/mm3; Status: F Lab Order: Drug Eval Toxicology ED Only; SPEC'M 10/22/16 03:59 Test: AMPHETAMINES LEVEL URINE; Value: NEGATIVE; Range: NEGATIVE; Status: F Test: BARBITURATES URINE; Value: NEGATIVE; Range: NEGATIVE; Status: F Test: BENZODIAZEPINES URINE; Value: NEGATIVE; Range: NEGATIVE; Status: F Test: CANNABINOIDS URINE; Value: NEGATIVE; Range: NEGATIVE; Status: F Test: COCAINE METABOLITE URINE; Value: NEGATIVE; Range: NEGATIVE; Status: F Test: METHADONE URINE; Value: NEGATIVE; Range: NEGATIVE; Status: F Test: OPIATES URINE; Value: NEGATIVE; Range: NEGATIVE; Status: F Test: TRICYCLIC ANTIDEPRESS URINE; Value: NEGATIVE; Range: NEGATIVE; Status: F Test Note: ; ALL PRESUMPTIVE POSITIVE FINDINGS ARE UNCONFIRMED NORMAL VALUES THRESHOLD IN NG/ML AMPHETAMINES 1000 METHAMPHETAMINES 1000 BARBITURATES 300 BENZODIAZEPINES 300 CANNABINOIDS (THC) 50 COCAINE METABOLITE 300 METHADONE 300 OPIATES 300 PHENCYCLIDINE 25 TRICYCLIC ANTIDEPRESSANTS 1000 RESULTS ARE FOR MEDICAL PURPOSES ONLY. ALL URINE SPECIMENS WILL BE SAVED FOR 3 DAYS. IF CONFIRMATION OF A PRESUMPTIVE POSTIVE SCREEN RESULT IS DESIRED, CALL CHEMISTRY ([phone]) AND REQUEST URINE TO BE SENT TO REFERENCE LAB. FOR A LIST OF CLOSELY RELATED COMPOUNDS PLEASE CALL THE LAB. Lab Order: Ethyl Alcohol (ethanol); SPEC'M 10/22/16 04:00 Test: ETHYL ALCOHOL (ETHANOL); Value: < 0.003; Range: 0.000-0.010; Units: %; Status: F Lab Order: Liver Profile; SPEC'M 10/22/16 04:00 Test: AST/SGOT; Value: 14; Range: 15-37; Abnormal: Below low normal; Units: U/L; Status: F Test: ALT/SGPT; Value: 33; Range: 12-78; Units: U/L; Status: F Test: ALKALINE PHOSPHATASE; Value: 130; Range: 45-117; Abnormal: Above high normal; Units: U/L; Status: F Test: BILIRUBIN,TOTAL; Value: 0.4; Range: 0.2-1.0; Units: MG/DL; Status: F Test: BILIRUBIN,DIRECT; Value: 0.1; Range: 0.0-0.2; Units: MG/DL; Status: F Test: TOTAL PROTEIN; Value: 7.6; Range: 6.4-8.2; Units: GM/DL; Status: F Test: ALBUMIN; Value: 4.5; Range: 3.2-5.2; Units: GM/DL; Status: F Test: ALBUMIN/GLOBULIN RATIO; Value: 1.45; Range: 1.00-1.93; Status: F Lab Order: Salicylate Level; SPEC'M 10/22/16 04:00 Test: SALICYLATE LEVEL; Value: < 1.7; Range: 5.0-30.0; Abnormal: Below low normal; Units: MG/DL; Status: F Lab Order: Thyroid Stimulating Hormone; SPEC'M 10/22/16 04:00 Test: THYROID STIMULATING HORMONE; Value: 4.180; Range: 0.358-3.740; Abnormal: Above high normal; Units: uIU/ML; Status: F Outcome: 04:04 Property removed, inventory done, secured in belongings bag- placed in locked locker. [facility] 04:35 Discharge Assessment: patient administered narcotics - no. No special radiology studies slm were completed. 05:56 Decision to Hospitalize by Provider. fg 09:19 The following High Risk Discharge criteria are identified: None. Admitted to Psych dy accompanied by tech, via wheelchair, with chart. Condition: stable. 09:23 Patient left the ED. dy Signatures: Tyler Montague, PSA PSA ac Nish Randall, PSA PSA cl Arcelia Worrell, Reg Reg Porter Salter, Security Aide LuisDarrel Villanueva, RN RN Deborah AriasRN RN Louisa Herrera LPN LPN slLennie eRed, Claims Clerk Unit Iris Segundo MD MD fg Beck, Gabriela gjb Stanton, Hillary, Reg Reg hs2 Melanie aPtiño,RN RN cf2 Chart Complete MTDD
--- NOTE | 2016-10-24 17:36 | IPNPDOC ---
[facility] Progress Note Progress Note DATE OF SERVICE: 10/24/16 HISTORY: Patient is observed to be resting in bed between groups, sits up readily to engage with adjusto writer operator. Patient appears brighter today reports 4/10 anxiety, 5/10 depression, exhibits no tearfulness today, denies current suicidal and homicidal ideation but indicates experienced passive suicidal ideation last night with no specific plan or intent. Patient denies audiovisual hallucinations and denies urge to engage in self-injurious behavior. Patient has now taken Wellbutrin XL 150 mg by mouth 2, indicates medication may be helping him feel "a little better, it' s easier not to feel depressed and a little easier to distract myself." Patient denies medication side effects. Patient indicates his appetite is stable, states he slept well last night with use of trazodone, denies nightmares symptoms. Patient reports ongoing challenges with concentration and focus, reports improvement to energy level. Patient indicates he is maintaining daily contact with his mother. VITAL SIGNS: See below. NEW TEST RESULTS: New lab results available on TSH and WBC, within normal limits. On admission, labs indicated elevated WBC, glucose, TSH, alkaline phosphatase. Leukocytosis, patient is afebrile and asymptomatic. AST low on admission. UDS negative on admission. EKG 10/23/16 SINUS RHYTHM CURRENT MEDICATIONS: See below. MEDICAL HISTORY: Patient denies history of seizure, endorses history of concussions in high school from football, notes he was evaluated by PCM. Patient endorses history of kidney stones and being treated for rhabdomyolysis in past. MENTAL STATUS EXAMINATION: Patient is a 21-year old male, who is cooperative, calm, less disheveled today, dressed in hospital clothing and appears stated age. Speech: Is normal rate, rhythm, volume, coherent, and spontaneous Thought processes: Clear, goal directed. Rate of thoughts: Normal Thought content: Logical, denies current suicidal or homicidal ideation, denies audiovisual hallucinations and other psychotic symptoms, denies obsessions and compulsions. Abstract reasoning: Within normal limits. Computation: Within normal limits. Associations: Intact. Abnormal or psychotic thoughts: Denies current hallucinations, Delusions, Preoccupation with violence, Homicidal or suicidal ideation, and Obsessions. Judgment: Poor Insight: Fair to poor Oriented to: Time, place and person. Recent and Remote Memory: Intact. Attention Span and Concentration: Limited. Language: Normal. Fund of knowledge: Adequate. 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 Patient expresses ongoing reduction in and times of anxiety and depression, denies any new developments in his legal challenges. Patient denies suicidal and homicidal ideation and is able to effectively engage in the safety planning process verbalizing awareness of how to access supportive services on the unit and agreeing to do so if needed. Patient was encouraged to continue participating in unit programming. Patient is requesting to continue Wellbutrin XL med trial, remains aware that he has trazodone and hydroxyzine available to him as needed. Will continue to monitor patient's response to Wellbutrin XL 150 mg po q am and will titrate as tolerated by patient. Patient reiterates today he wants to be released from the [employer] noting he does not want to dishonorable discharge, remains aware that his discharge plan will be to return to [facility] outpatient behavioral health for psychotherapy and medication management services, YELITZA, and IOP evaluation. MANAGEMENT PLAN: Continue Wellbutrin XL 150 mg by mouth every morning, continue trazodone 50 mg po hs PRN insomnia and Hydroxyzine 50 mg po q 6 hours PRN anxiety Maintain safety precautions Patient to attend groups and participate in unit programming to develop coping strategies Engage patient in discharge planning process and arrange meeting with command to evaluate safe discharge planning when appropriate Patient to attend [facility] outpatient behavioral health, YELITZA, and IOP Patient to follow up with [facility] upon discharge Vital Signs/I&O Vital Signs Date Time Temp Pulse Resp B/P Pulse Ox O2 Delivery O2 Flow Rate FiO2 10/24/16 06:15 96.4 71 16 103/58 Current Medications Current Medications Acetaminophen (Tylenol) 650 mg Q6HP PRN PO HEADACHE or DISCOMFORT; Start at 06:00; Stop 11/21/16 at 05:59 Al Hydrox/Mg Hydrox/Simethicone (Mylanta) 30 ml Q4HP PRN PO HEARTBURN/ INDIGESTION; Start 10/22/16 at 06:00; Stop 11/21/16 at 05:59 Bupropion HCl (Wellbutrin Xl) 150 mg QAM PO Last administered on 10/24/16 09: 27; Start 10/23/16 at 09:00; Stop 11/22/16 at 08:59 Home Med (Med Rec Complete!) ASDIRECTED XX ; Start 10/22/16 at 07:00; Stop 08/28 at 07:00; Status DC Hydroxyzine HCl (Atarax) 50 mg Q6HP PRN PO ANXIETY; Start 10/22/16 at 12:30; Stop 11/21/16 at 12:29 Lorazepam (Ativan) 1 mg Q4HP PRN PO ANXIETY; Start 10/22/16 at 06:00; Stop at 05:59 Magnesium Hydroxide (Milk Of Magnesia) 30 ml DAILYPRN PRN PO CONSTIPATION; Start 10/22/16 at 06:00; Stop 11/21/16 at 05:59 Trazodone HCl (Desyrel) 50 mg QHSP PRN PO INSOMNIA Last administered on 22:57; Start 10/22/16 at 06:00; Stop 11/21/16 at 05:59 Allergies Coded Allergies: Clarithromycin (Unverified Allergy, Intermediate, rash, 10/22/16) Griselda Bang Oct 24, 2016 17:36
[2016-10-24 18:00] VITALS: BP 120/64
[2016-10-25 06:25] VITALS: BP 118/57
[2016-10-25] MEDS: buPROPion **XL** TABLET 150MG (WELLBUTRIN XL) PO SCH (08:43)
[2016-10-25 18:00] VITALS: BP 125/64
[2016-10-26 06:18] VITALS: BP 119/88
[2016-10-26] MEDS: buPROPion **XL** TABLET 150MG (WELLBUTRIN XL) PO SCH (09:11)
--- NOTE | 2016-10-26 09:30 | IPN ---
DATE: 10/25/2016 The patient today states that "I'm feeling emotional today. I'm thinking about my family and missing them." His mood is still depressed. His mood is 6 or 7 out of 10, where the closer to 10 is the most depressed. He is still having some hopelessness. He is sleeping better even without the trazodone. He said when he tried the trazodone, "it knocked me out." Mood is depressed with fleeting suicidal ideations but without any plan. MENTAL STATUS EXAMINATION: He is alert and oriented times three. Eye contact is fair. Psychomotor activity is normal. There is no formal thought disorder noted. Mood is depressed. Affect full range and appropriate. He is not psychotic. Insight and judgment poor. DIAGNOSIS: Major depressive disorder, recurrent, moderate. Rule out unspecified mood disorder. Rule out alcohol use disorder. TREATMENT PLAN: We will observe and evaluate this patient for continued resolution of his suicidal ideation and elevation of his mood, and we will continue to titrate the medications as indicated. LESLY
[2016-10-26] MEDS: hydrOXYzine 50 MG TAB PO PRN (13:06)
[2016-10-26 18:00] VITALS: BP 123/60
[2016-10-26] MEDS: traZODone 50 MG TAB PO PRN (23:28)
--- NOTE | 2016-10-27 01:31 | IPN ---
DATE OF SERVICE: 10/26/2016 The patient today states, "I'm okay." He says he is still having some mild depression and occasionally has some fleeting suicidal thoughts, but he says "I'm able to distract myself and they go away." MENTAL STATUS EXAMINATION: The patient is alert and oriented times three. Eye contact is fair. Psychomotor activity is normal. He is verbally spontaneous. There is no formal thought disorder. He says his mood is "okay." Affect is constricted, but appropriate to his mood. He is not psychotic. He denies suicidal, homicidal ideation. Concentration is fair. Memory is intact. Insight and judgment is poor. DIAGNOSIS: Major depressive disorder, recurrent, moderate. Rule out alcohol use disorder. TREATMENT PLAN: At this point, we will further observe and evaluate this patient for continued elevation and stabilization of his mood. We will continue to monitor him for continued resolution of suicidal ideation. He is tolerating his medications well. We will continue to titrate as indicated.
[2016-10-27 06:00] VITALS: BP 134/78
[2016-10-27] MEDS: buPROPion **XL** TABLET 150MG (WELLBUTRIN XL) PO SCH (08:40)
[2016-10-27] MEDS: ACETAMINOPHEN TAB 650MG DOSE (2X325MG) PO PRN (08:41)
[2016-10-27 18:00] VITALS: BP 126/60
--- NOTE | 2016-10-27 18:49 | IPNPDOC ---
[facility] Progress Note Progress Note DATE OF SERVICE: 10/27/16 HISTORY: Patient is observed to be resting in bed between groups, sits up readily and meets with ghost writer in office. Patient indicates he feels "better," but states today he is feeling "numb." Patient rates current anxiety level as 4/ 10, depression he is unable to assess, denies suicidal and homicidal ideation, denies audiovisual hallucinations, denies urge to engage in self-injurious behavior. Patient indicates he last experienced passive suicidal ideation last night, is unable to provide ghost writer with details, notes however, he experienced no plan or intent at that time. Patient denies mood lability, exhibits no tearfulness today. Patient attributes feeling "numb" to his grandfather is undergoing surgery related to cancer today and he is awaiting outcome. Patient continues to take Wellbutrin XL 150 mg po q am, indicates medication is helping to reduce symptoms of anxiety and depression and notes when he does experience passive suicidal ideation, medication helps him to "pass the thoughts by." Patient utilize hydroxyzine 50 mg 1 on 10/26/15 to address symptoms of increased anxiety, notes medication was effective. Patient denies medication side effects. Patient indicates his appetite is stable, sleep is good with no nightmares symptoms. Patient reports ongoing challenges with concentration and focus, reports reduced energy level today. Patient indicates he is maintaining daily contact with his mother. VITAL SIGNS: See below. NEW TEST RESULTS: New lab results available on TSH and WBC, within normal limits. On admission, labs indicated elevated WBC, glucose, TSH, alkaline phosphatase. Leukocytosis, patient is afebrile and asymptomatic. AST low on admission. UDS negative on admission. EKG 10/23/16 SINUS RHYTHM CURRENT MEDICATIONS: See below. MEDICAL HISTORY: Patient denies history of seizure, endorses history of concussions in high school from football, notes he was evaluated by PCM. Patient endorses history of kidney stones and being treated for rhabdomyolysis in past. MENTAL STATUS EXAMINATION: Patient is a 21-year old male, who is cooperative, calm, less disheveled today, dressed in hospital clothing and appears stated age. Speech: Is normal rate, rhythm, volume, coherent, and spontaneous Thought processes: Clear, goal directed. Rate of thoughts: Normal Thought content: Logical, denies current suicidal or homicidal ideation, denies audiovisual hallucinations and other psychotic symptoms, denies obsessions and compulsions. Abstract reasoning: Within normal limits. Computation: Within normal limits. Associations: Intact. Abnormal or psychotic thoughts: Denies current hallucinations, Delusions, Preoccupation with violence, Homicidal or suicidal ideation, and Obsessions. Judgment: Poor Insight: Fair to poor, verbalizes some improvement Oriented to: Time, place and person. Recent and Remote Memory: Intact. Attention Span and Concentration: Limited. Language: Normal. Fund of knowledge: Adequate. 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 Patient remains more visible in milieu and is easily engaged at time of interaction. Patient expresses ongoing reduction in symptoms of anxiety and depression, denies any new developments in his legal challenges. Patient denies suicidal and homicidal ideation and is able to effectively engage in the safety planning process verbalizing awareness of how to access supportive services on the unit and agreeing to do so if needed. Patient was encouraged to continue participating in unit programming. Patient is requesting to continue Wellbutrin XL med trial, indicates he feels trazodone is forcing him to feel drowsy in the morning, requests discontinuation. Patient verbalizes awareness that he has hydroxyzine 50 mg available to him for symptoms of anxiety, indicates he will trial hydroxyzine to address ruminating thoughts at nighttime. Will continue to monitor patient's response to Wellbutrin XL 150 mg po q am and will titrate as tolerated by patient. Patient remains aware that his discharge plan will be to return to [facility] outpatient behavioral health for psychotherapy and medication management services, YELITZA, and IOP evaluation. MANAGEMENT PLAN: Continue Wellbutrin XL 150 mg by mouth every morning and Hydroxyzine 50 mg po q 6 hours PRN anxiety. Discontinue trazodone 50 mg po hs PRN insomnia Maintain safety precautions Patient to attend groups and participate in unit programming to develop coping strategies Engage patient in discharge planning process and arrange meeting with command to evaluate safe discharge planning when appropriate Patient to attend [place] outpatient behavioral health, Y[facility]ZA, and IOP Patient to follow up with [facility] upon discharge Vital Signs/I&O Vital Signs Date Time Temp Pulse Resp B/P Pulse Ox O2 Delivery O2 Flow Rate FiO2 10/27/16 18:00 97.6 94 16 126/60 Current Medications Current Medications Acetaminophen (Tylenol) 650 mg Q6HP PRN PO HEADACHE or DISCOMFORT Last administered on 10/27/16 08:41; Start 10/22/16 at 06:00; Stop 11/21/16 at 05:59 Al Hydrox/Mg Hydrox/Simethicone (Mylanta) 30 ml Q4HP PRN PO HEARTBURN/ INDIGESTION; Start 10/22/16 at 06:00; Stop 11/21/16 at 05:59 Bupropion HCl (Wellbutrin Xl) 150 mg QAM PO Last administered on 10/27/16 08: 40; Start 10/23/16 at 09:00; Stop 11/22/16 at 08:59 Home Med (Med Rec Complete!) ASDIRECTED XX ; Start 10/22/16 at 07:00; Stop 08/28 at 07:00; Status DC Hydroxyzine HCl (Atarax) 50 mg Q6HP PRN PO ANXIETY Last administered on 13:06; Start 10/22/16 at 12:30; Stop 11/21/16 at 12:29 Lorazepam (Ativan) 1 mg Q4HP PRN PO ANXIETY; Start 10/22/16 at 06:00; Stop at 05:59 Magnesium Hydroxide (Milk Of Magnesia) 30 ml DAILYPRN PRN PO CONSTIPATION; Start 10/22/16 at 06:00; Stop 11/21/16 at 05:59 Trazodone HCl (Desyrel) 50 mg QHSP PRN PO INSOMNIA Last administered on 23:28; Start 10/22/16 at 06:00; Stop 11/21/16 at 05:59 Allergies Coded Allergies: Clarithromycin (Unverified Allergy, Intermediate, rash, 10/22/16) Griselda Bang Oct 27, 2016 18:49
[2016-10-27] MEDS: hydrOXYzine 50 MG TAB PO PRN (22:50)
[2016-10-28 06:32] VITALS: BP 109/54
[2016-10-28] MEDS: buPROPion **XL** TABLET 150MG (WELLBUTRIN XL) PO SCH (08:49)
[2016-10-28 18:00] VITALS: BP 123/68
--- NOTE | 2016-10-28 19:01 | IPNPDOC ---
[facility] Progress Note Progress Note DATE OF SERVICE: 10/28/16 HISTORY: Patient is observed to be visible on unit, interacting with peers and lounge, attending groups. Patient indicates he continues to feel "better," denies feeling numb today, rates current anxiety level as 3/10, depression 5/10 , denies suicidal and homicidal ideation, denies audiovisual hallucinations, denies urge to engage in self-injurious behavior. Patient states he last experienced symptoms of passive SI last night and states to health science writer, "I was feeling down, sitting in my room thinking about all my legal stuff and the [employer] , thought about what it would be like not to be here," denies having plan or intent to harm self at the time. Patient denies mood lability, displays no tearfulness today. Patient indicates Wellbutrin XL continues to be helpful in controlling negative thinking, patient denies medication side effects. Patient trialed hydroxyzine 50 mg po last night for anxiety at bedtime, notes medication was effective. Patient denies challenges related to sleep and denies nightmares, indicates concentration and energy level are normal, indicates appetite is stable. Patient notes mother visited last night and feels visit went well. VITAL SIGNS: See below. NEW TEST RESULTS: New lab results available on TSH and WBC, within normal limits. On admission, labs indicated elevated WBC, glucose, TSH, alkaline phosphatase. Leukocytosis, patient is afebrile and asymptomatic. AST low on admission. UDS negative on admission. EKG 10/23/16 SINUS RHYTHM CURRENT MEDICATIONS: See below. MEDICAL HISTORY: Patient denies history of seizure, endorses history of concussions in high school from football, notes he was evaluated by PCM. Patient endorses history of kidney stones and being treated for rhabdomyolysis in past. MENTAL STATUS EXAMINATION: Patient is a 21-year old male, who is cooperative, calm, less disheveled today, dressed in hospital clothing and appears stated age. Speech: Is normal rate, rhythm, volume, coherent, and spontaneous Thought processes: Clear, goal directed. Rate of thoughts: Normal Thought content: Logical, denies current suicidal or homicidal ideation, denies audiovisual hallucinations and other psychotic symptoms, denies obsessions and compulsions. Abstract reasoning: Within normal limits. Computation: Within normal limits. Associations: Intact. Abnormal or psychotic thoughts: Denies current hallucinations, Delusions, Preoccupation with violence, Homicidal or suicidal ideation, and Obsessions. Judgment: Poor Insight: Fair to poor, verbalizes some improvement Oriented to: Time, place and person. Recent and Remote Memory: Intact. Attention Span and Concentration: Limited. Language: Normal. Fund of knowledge: Adequate. 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 Patient denies knowledge of any new developments in his legal challenges, indicates he remains "very concerned" about what [facility] will decide in terms of his legal problems and career. Patient was informed that purchasing coordinator is attempting to arrange chain of command meeting to discuss patient's future in the [facility], discharge planning, and patient's request for long-term care. Patient denies suicidal and homicidal ideation and is able to effectively engage in the safety planning process verbalizing awareness of how to access supportive services on the unit and agreeing to do so if needed. Patient was encouraged to continue participating in unit programming. Patient is requesting to continue Wellbutrin XL med trial, indicates hydroxyzine is effective as needed and denies medication side effects. Will continue to monitor patient's response to Wellbutrin XL 150 mg po q am and will titrate as tolerated by patient. Patient remains aware that his discharge plan will be to return to [facility] outpatient behavioral health for psychotherapy and medication management services, YELITZA, and IOP evaluation. MANAGEMENT PLAN: Continue Wellbutrin XL 150 mg by mouth every morning and Hydroxyzine 50 mg po q 6 hours PRN anxiety. Maintain safety precautions Patient to attend groups and participate in unit programming to develop coping strategies Engage patient in discharge planning process and arrange meeting with command to evaluate safe discharge planning when appropriate Patient to attend [place] outpatient behavioral health, YELITZA, and IOP Patient to follow up with [facility] upon discharge Vital Signs/I&O Vital Signs Date Time Temp Pulse Resp B/P Pulse Ox O2 Delivery O2 Flow Rate FiO2 10/28/16 06:32 97.7 68 18 109/54 Current Medications Current Medications Acetaminophen (Tylenol) 650 mg Q6HP PRN PO HEADACHE or DISCOMFORT Last administered on 10/27/16 08:41; Start 10/22/16 at 06:00; Stop 11/21/16 at 05:59 Al Hydrox/Mg Hydrox/Simethicone (Mylanta) 30 ml Q4HP PRN PO HEARTBURN/ INDIGESTION; Start 10/22/16 at 06:00; Stop 11/21/16 at 05:59 Bupropion HCl (Wellbutrin Xl) 150 mg QAM PO Last administered on 10/28/16 08: 49; Start 10/23/16 at 09:00; Stop 11/22/16 at 08:59 Home Med (Med Rec Complete!) ASDIRECTED XX ; Start 10/22/16 at 07:00; Stop 08/28 at 07:00; Status DC Hydroxyzine HCl (Atarax) 50 mg Q6HP PRN PO ANXIETY Last administered on 22:50; Start 10/22/16 at 12:30; Stop 11/21/16 at 12:29 Lorazepam (Ativan) 1 mg Q4HP PRN PO ANXIETY; Start 10/22/16 at 06:00; Stop at 11:03; Status DC Magnesium Hydroxide (Milk Of Magnesia) 30 ml DAILYPRN PRN PO CONSTIPATION; Start 10/22/16 at 06:00; Stop 11/21/16 at 05:59 Trazodone HCl (Desyrel) 50 mg QHSP PRN PO INSOMNIA Last administered on 23:28; Start 10/22/16 at 06:00; Stop 10/27/16 at 18:52; Status DC Allergies Coded Allergies: Clarithromycin (Unverified Allergy, Intermediate, rash, 10/22/16) Griselda Bang Oct 28, 2016 19:01
[2016-10-28] MEDS: ACETAMINOPHEN TAB 650MG DOSE (2X325MG) PO PRN (21:23)
[2016-10-28] MEDS: hydrOXYzine 50 MG TAB PO PRN (21:24)
[2016-10-29 06:40] VITALS: BP 100/58
[2016-10-29] MEDS: buPROPion **XL** TABLET 150MG (WELLBUTRIN XL) PO SCH (08:43)
--- NOTE | 2016-10-29 09:44 | IPNPDOC ---
[facility] Progress Note Progress Note DATE OF SERVICE: 10/29/16 HISTORY: Patient is observed to be visible on unit, interacting with peers and lounge, attending groups. Patient denies symptoms of numbness, reports he is feeling "better," however, per record, patient reportedly expressed to mother last night during visitation plans to kill self after being discharged from facility due to feeling "my life is over." When confronted on statement to mother, patient indicated he remains depressed and anxious pertaining to his pending legal charges and unknown future with [employer]. Patient denies current suicidal and homicidal ideation, reports anxiety level of 4/10, depression 5/10 , denies audiovisual hallucinations, denies urge to engage in self-injurious behavior and denies feeling numb today. Patient denies mood lability, displays no tearfulness today. Patient indicates Wellbutrin XL continues to be helpful in controlling negative thinking but is receptive to dose increase, patient denies medication side effects. Patient indicates hydroxyzine 50 mg po is effective in reducing symptoms of anxiety at bedtime, states today he feels trazodone exacerbated symptoms of lethargy and caused a.m. grogginess. Patient denies challenges related to sleep and denies nightmares, indicates concentration and energy levels remain normal, indicates appetite is stable. Patient notes mother continues to visit with patient regularly, patient feels visits are positive and supportive. Addendum: Nursing handed technical writer and editor HARVEY signed by patient's father requests to contact patient's father. Treatment update provided to patient's father by way of telephone date of entry. VITAL SIGNS: See below. NEW TEST RESULTS: New lab results available on TSH and WBC, within normal limits. On admission, labs indicated elevated WBC, glucose, TSH, alkaline phosphatase. Leukocytosis, patient is afebrile and asymptomatic. AST low on admission. UDS negative on admission. EKG 10/23/16 SINUS RHYTHM CURRENT MEDICATIONS: See below. MEDICAL HISTORY: Patient denies history of seizure, endorses history of concussions in high school from football, notes he was evaluated by PCM. Patient endorses history of kidney stones and being treated for rhabdomyolysis in past. MENTAL STATUS EXAMINATION: Patient is a 21-year old male, who is cooperative, calm, mildly disheveled today, dressed in hospital clothing and appears stated age. Speech: Is normal rate, rhythm, volume, coherent, and spontaneous Thought processes: Clear, goal directed. Rate of thoughts: Normal Thought content: Logical, denies current suicidal or homicidal ideation, denies audiovisual hallucinations and other psychotic symptoms, denies obsessions and compulsions. Abstract reasoning: Within normal limits. Computation: Within normal limits. Associations: Intact. Abnormal or psychotic thoughts: Denies current hallucinations, Delusions, Preoccupation with violence, Homicidal or suicidal ideation, and Obsessions. Judgment: Poor Insight: Poor to fair - verbalizes some improvement Oriented to: Time, place and person. Recent and Remote Memory: Intact. Attention Span and Concentration: Limited. Language: Normal. Fund of knowledge: Adequate. 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 Patient denies knowledge of any new developments in his legal challenges, remains concerned about [employer] future and pending legal charges. Patient is aware that fieldwork coordinator is attempting to arrange chain of command meeting to discuss patient's future in the [employer], discharge planning, and patient's request for long-term care. Patient states he is " afraid of relapse" post discharge from hospital, denies current suicidal and homicidal ideation and is able to effectively engage in the safety planning process verbalizing awareness of how to access supportive services on the unit and agreeing to do so if needed. Patient was encouraged to continue participating in unit programming. Patient is requesting a trial of increased dose of Wellbutrin XL, indicates hydroxyzine remains effective as needed and denies medication side effects. Will increase Wellbutrin XL to 300 mg po q am and will continue to monitor patient's response to medication. Patient remains aware that his discharge plan remains to return to [facility] outpatient behavioral health for psychotherapy and medication management services, [facility], and IOP evaluation. MANAGEMENT PLAN: Increase Wellbutrin XL to 300 mg po q am, continue Hydroxyzine 50 mg po q 6 hours PRN anxiety. Maintain safety precautions Patient to attend groups and participate in unit programming to develop coping strategies Engage patient in discharge planning process and arrange meeting with command to evaluate safe discharge planning when appropriate Patient to attend [place] outpatient behavioral health, [facility], and IOP Patient to follow up with [place] [facility] upon discharge Vital Signs/I&O Vital Signs Date Time Temp Pulse Resp B/P Pulse Ox O2 Delivery O2 Flow Rate FiO2 10/29/16 06:40 96.4 71 16 100/58 Current Medications Current Medications Acetaminophen (Tylenol) 650 mg Q6HP PRN PO HEADACHE or DISCOMFORT Last administered on 10/28/16 21:23; Start 10/22/16 at 06:00; Stop 11/21/16 at 05:59 Al Hydrox/Mg Hydrox/Simethicone (Mylanta) 30 ml Q4HP PRN PO HEARTBURN/ INDIGESTION; Start 10/22/16 at 06:00; Stop 11/21/16 at 05:59 Bupropion HCl (Wellbutrin Xl) 150 mg NOW ONCE PO ; Start 10/29/16 at 09:45; Stop 10/29/16 at 09:46; Status UNV Bupropion HCl (Wellbutrin Xl) 150 mg QAM PO Last administered on 10/29/16 08: 43; Start 10/23/16 at 09:00; Stop 11/22/16 at 08:59 Home Med (Med Rec Complete!) ASDIRECTED XX ; Start 10/22/16 at 07:00; Stop 08/28 at 07:00; Status DC Hydroxyzine HCl (Atarax) 50 mg Q6HP PRN PO ANXIETY Last administered on 21:24; Start 10/22/16 at 12:30; Stop 11/21/16 at 12:29 Lorazepam (Ativan) 1 mg Q4HP PRN PO ANXIETY; Start 10/22/16 at 06:00; Stop at 11:03; Status DC Magnesium Hydroxide (Milk Of Magnesia) 30 ml DAILYPRN PRN PO CONSTIPATION; Start 10/22/16 at 06:00; Stop 11/21/16 at 05:59 Trazodone HCl (Desyrel) 50 mg QHSP PRN PO INSOMNIA Last administered on 23:28; Start 1/11/17 at 06:00; Stop 10/27/16 at 18:52; Status DC Allergies Coded Allergies: Clarithromycin (Unverified Allergy, Intermediate, rash, 10/22/16) Griselda Bang Oct 29, 2016 09:43
[2016-10-29] MEDS ORDERED: buPROPion **XL** TABLET 150MG (WELLBUTRIN XL) PO ONE (09:45)
[2016-10-29 18:00] VITALS: BP 131/80
[2016-10-29] MEDS: hydrOXYzine 50 MG TAB PO PRN (22:44)
[2016-10-30 06:43] VITALS: BP 137/66
[2016-10-30] MEDS: buPROPion **XL** TABLET 150MG (WELLBUTRIN XL) PO SCH (09:26)
--- NOTE | 2016-10-30 15:15 | IPNPDOC ---
[facility] Progress Note Progress Note DATE OF SERVICE: 10/30/16 HISTORY: Patient is observed to be visible on unit, interacting with peers and lounge, attending groups, meets readily with aligner typewriter in office today. Patient starts out meeting by telling aligner typewriter, "I feel really anxious about the chain of command meeting tomorrow, I'm afraid up with her going to tell me." Patient indicates anxiety level has been 2/10, notes since hearing about chain of command meeting anxiety level is now 7/10, reports 5/10 depression, denies suicidal and homicidal ideation, denies audiovisual hallucinations, and denies urge to engage in self-injurious behavior. When asked he still experiencing plans to kill self after discharge patient states, "I feel unsure." Patient adds he remains depressed and anxious with regard to pending legal charges and unknown future in [employer]. Patient indicates recent dose increase to Wellbutrin XL is beneficial, indicates he feels his mood is improving and is experiencing reduced symptoms of depression. Patient denies mood lability and displays no tearfulness today. Patient denies medication side effects. Patient states he took hydroxyzine 50 mg last night for anxiety/sleep, notes medication was ineffective, is today requesting a prescription for trazodone at 25 mg dose. Patient indicates when he took trazodone 50 mg he experienced a.m. grogginess, but indicates medication was "very affective" for sleep. Patient denies nightmares, indicates concentration and energy levels remain normal, indicates appetite is stable. Patient notes mother continues to visit with patient regularly, patient feels visits are positive and supportive. Patient is aware chain of command meeting has been scheduled for tomorrow morning at 10:00 AM, remains aware he has PRN hydroxyzine available to him if symptoms of anxiety become overwhelming. Addendum: Nursing handed aligner typewriter HARVEY on 10/29/16 signed by patient's father requests to contact patient's father. Treatment update provided to patient's father by way of telephone on 10/29/16. VITAL SIGNS: See below. NEW TEST RESULTS: New lab results available on TSH and WBC, within normal limits. On admission, labs indicated elevated WBC, glucose, TSH, alkaline phosphatase. Leukocytosis, patient is afebrile and asymptomatic. AST low on admission. UDS negative on admission. EKG 10/23/16 SINUS RHYTHM CURRENT MEDICATIONS: See below. MEDICAL HISTORY: Patient denies history of seizure, endorses history of concussions in high school from football, notes he was evaluated by PCM. Patient endorses history of kidney stones and being treated for rhabdomyolysis in past. MENTAL STATUS EXAMINATION: Patient is a 21-year old male, who is cooperative, calm, improved personal hygiene today, dressed in personal clothing, appears stated age. Speech: Is normal rate, rhythm, volume, coherent, and spontaneous Thought processes: Clear, goal directed. Rate of thoughts: Normal Thought content: Logical, denies current suicidal or homicidal ideation, denies audiovisual hallucinations and other psychotic symptoms, denies obsessions and compulsions. Abstract reasoning: Within normal limits. Computation: Within normal limits. Associations: Intact. Abnormal or psychotic thoughts: Denies current hallucinations, Delusions, Preoccupation with violence, Homicidal or suicidal ideation, and Obsessions. Judgment: Poor Insight: Poor to fair - verbalizes some improvement Oriented to: Time, place and person. Recent and Remote Memory: Intact. Attention Span and Concentration: Limited, stable Language: Normal. Fund of knowledge: Adequate. 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 Patient remains more visible in milieu and is easily engaged at time of interaction. Patient denies knowledge of any new developments in his legal challenges, remains concerned about [employer] future and pending legal charges. Patient is aware that school community relations coordinator has arranged chain of command meeting for tomorrow to discuss discharge planning, indicates he remains interested in long-term care. Patient states he remains concerned about "relapse" and suicidality post discharge from hospital, denies current suicidal and homicidal ideation and is able to effectively engage in the safety planning process verbalizing awareness of how to access supportive services on the unit and agreeing to do so if needed. Patient was encouraged to continue participating in unit programming. Patient is requesting to continue Wellbutrin XL at 300 mg po q am dose, indicates hydroxyzine remains effective as needed or anxiety, and is today requesting new prescription for trazodone 25 mg po hs PRN insomnia. Patient denies medication side effects. Will continue to monitor patient's response to recent dose increase to Wellbutrin XL, and will evaluate effectiveness of reduced dose of trazodone to address sleep challenges. Patient remains aware that his discharge plan remains to return to [facility] beds at the [facility] outpatient behavioral health for psychotherapy and medication management services, YELITZA, and IOP evaluation. MANAGEMENT PLAN: Continue Wellbutrin XL to 300 mg po q am, continue Hydroxyzine 50 mg po q 6 hours PRN anxiety, trial trazodone 25 mg po hs PRN insomnia. Maintain safety precautions Patient to attend groups and participate in unit programming to develop coping strategies Engage patient in discharge planning process, chain of command meeting arranged for tomorrow morning at 10:00 Patient to attend [place] outpatient behavioral health, Y[facility], and IOP Patient to follow up with [place] PCM upon discharge Vital Signs/I&O Vital Signs Date Time Temp Pulse Resp B/P Pulse Ox O2 Delivery O2 Flow Rate FiO2 10/30/16 06:43 97.3 67 16 137/66 Current Medications Current Medications Acetaminophen (Tylenol) 650 mg Q6HP PRN PO HEADACHE or DISCOMFORT Last administered on 10/28/16 21:23; Start 10/22/16 at 06:00; Stop 11/21/16 at 05:59 Al Hydrox/Mg Hydrox/Simethicone (Mylanta) 30 ml Q4HP PRN PO HEARTBURN/ INDIGESTION; Start 10/22/16 at 06:00; Stop 11/21/16 at 05:59 Bupropion HCl (Wellbutrin Xl) 150 mg NOW ONCE PO Last administered on 09:53; Start 10/29/16 at 09:45; Stop 10/29/16 at 09:46; Status DC Bupropion HCl (Wellbutrin Xl) 150 mg QAM PO Last administered on 10/29/16 08: 43; Start 10/23/16 at 09:00; Stop 10/29/16 at 10:21; Status DC Bupropion HCl (Wellbutrin Xl) 300 mg QAM PO Last administered on 10/30/16 09: 26; Start 10/30/16 at 09:00; Stop 11/29/16 at 08:59 Home Med (Med Rec Complete!) ASDIRECTED XX ; Start 10/22/16 at 07:00; Stop 08/28 at 07:00; Status DC Hydroxyzine HCl (Atarax) 50 mg Q6HP PRN PO ANXIETY Last administered on 22:44; Start 10/22/16 at 12:30; Stop 11/21/16 at 12:29 Lorazepam (Ativan) 1 mg Q4HP PRN PO ANXIETY; Start 10/22/16 at 06:00; Stop at 11:03; Status DC Magnesium Hydroxide (Milk Of Magnesia) 30 ml DAILYPRN PRN PO CONSTIPATION; Start 10/22/16 at 06:00; Stop 11/21/16 at 05:59 Trazodone HCl (Desyrel) 50 mg QHSP PRN PO INSOMNIA Last administered on 23:28; Start 10/22/16 at 06:00; Stop 10/27/16 at 18:52; Status DC Allergies Coded Allergies: Clarithromycin (Unverified Allergy, Intermediate, rash, 10/22/16) Griselda Bang Oct 30, 2016 15:15
[2016-10-30 18:00] VITALS: BP 110/72
[2016-10-30] MEDS: traZODone 25MG PER 1/2 TABLET PO PRN (22:04)
[2016-10-31 06:44] VITALS: BP 125/56
[2016-10-31] MEDS: buPROPion **XL** TABLET 150MG (WELLBUTRIN XL) PO SCH (09:29)
[2016-10-31] MEDS: hydrOXYzine 50 MG TAB PO PRN (09:30)
[2016-10-31] MEDS ORDERED: QUEtiapine FUMARATE 25 MG TAB PO PRN (11:30)
[2016-10-31 18:17] VITALS: BP 116/63
--- NOTE | 2016-10-31 19:01 | IPNPDOC ---
[facility] Progress Note Progress Note DATE OF SERVICE: 10/31/16 HISTORY: Patient is observed to be visible on unit, interacting with peers and lounge, attending groups, meets readily with senior grant writer in office today and informs senior grant writer he feels "very nervous" regarding chain of command meeting scheduled for this morning. Patient has taken PRN hydroxyzine in effort to reduce symptoms of anxiety, indicates medication is helping, denies agitation. Patient rates current anxiety level 8/10, depression 6/10, denies suicidal and homicidal ideation, denies audiovisual hallucinations, and denies urge to engage in self- injurious behavior. Patient indicates he continues to feel "unsafe," and is unable to contract for safety were he not in the hospital. Patient reiterates he remains depressed and anxious with regard to pending legal charges and unknown future in [employer]. Patient indicates recent dose increase to Wellbutrin XL remains beneficial to mood and indicates medication is helping him "cope." Patient denies mood lability and displays no tearfulness today. Patient denies medication side effects. Patient states he took trazodone 25 mg po at bedtime last night, notes sleep was "better but I woke up anxious about the meeting," feels sleep challenge was situational, denies medication side effects. Patient attributes angering sleep challenges to impending chain of command meeting. Patient denies nightmares, indicates concentration and energy levels remain normal, indicates appetite is stable. Patient notes mother continues to visit with patient regularly and feels contact with family is positive and supportive. Patient is aware chain of command meeting is scheduled for this morning at 10:30 AM. Addendum: Casing Running Machine Tender checked in with patient post chain of command meeting, patient was anxious informed senior grant writer that his restrictions were reviewed, he was informed to civilian chargers, adds he may go to long-term care, reiterated he does feel suicidal if discharged, denies feeling suicidal in the inpatient environment. Patient was able to agree to alert staff suicidal ideation emerges or if symptoms of anxiety and depression become unmanageable. VITAL SIGNS: See below. NEW TEST RESULTS: New lab results available on TSH and WBC, within normal limits. On admission, labs indicated elevated WBC, glucose, TSH, alkaline phosphatase. Leukocytosis, patient is afebrile and asymptomatic. AST low on admission. UDS negative on admission. EKG 10/23/16 SINUS RHYTHM CURRENT MEDICATIONS: See below. MEDICAL HISTORY: Patient denies history of seizure, endorses history of concussions in high school from football, notes he was evaluated by PCM. Patient endorses history of kidney stones and being treated for rhabdomyolysis in past. MENTAL STATUS EXAMINATION: Patient is a 21-year old male, who is cooperative, anxious about chain of command meeting this morning, improved personal hygiene today, dressed in own clothing, appears stated age. Speech: Is normal rate, rhythm, volume, coherent, and spontaneous Thought processes: Clear, goal directed. Rate of thoughts: Normal Thought content: Logical, denies current suicidal or homicidal ideation, denies audiovisual hallucinations and other psychotic symptoms, denies obsessions and compulsions. Abstract reasoning: Within normal limits. Computation: Within normal limits. Associations: Intact. Abnormal or psychotic thoughts: Denies current hallucinations, Delusions, Preoccupation with violence, Homicidal or suicidal ideation, and Obsessions. Judgment: Poor Insight: Poor to fair - verbalizes some improvement Oriented to: Time, place and person. Recent and Remote Memory: Intact. Attention Span and Concentration: Limited, stable Language: Normal. Fund of knowledge: Adequate. 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 Patient denies knowledge of any new developments in his legal challenges, remains concerned about [employer] future and pending legal charges. Patient is aware that plan coordinator has arranged chain of command meeting for this morning to discuss discharge planning, indicates he remains interested in long-term care. Patient continues to express suicidal ideation were he to be discharged from Hospital, indicating he tends to feel "unsafe" in on monitored environment. In inpatient environment patient denies current suicidal and homicidal ideation and is able to effectively engage in the safety planning process verbalizing awareness of how to access supportive services on the unit and agreeing to do so if needed. Patient was encouraged to continue participating in unit programming. Patient is requesting to continue Wellbutrin XL at 300 mg po q am dose, indicates hydroxyzine remains effective as needed or anxiety. Patient is requesting to continue trazodone at 25 mg po hs PRN dose for insomnia. Patient denies medication side effects. Will continue to monitor patient's response to medications and monitor for side effects. Patient remains aware that his discharge plan is currently to return to [facility] outpatient behavioral health for psychotherapy and medication management services, YELITZA, and IOP evaluation. MANAGEMENT PLAN: Continue Wellbutrin XL to 300 mg po q am, continue Hydroxyzine 50 mg po q 6 hours PRN anxiety, continue trazodone 25 mg po hs PRN insomnia. Maintain safety precautions Patient to attend groups and participate in unit programming to develop coping strategies Engage patient in discharge planning process, chain of command meeting arranged for this morning at 10:30 AM Patient to attend [place] outpatient behavioral health, YELITZA, and IOP Patient to follow up with [place] PCM upon discharge Vital Signs/I&O Vital Signs Date Time Temp Pulse Resp B/P Pulse Ox O2 Delivery O2 Flow Rate FiO2 10/31/16 18:17 97.1 80 16 116/63 Current Medications Current Medications Acetaminophen (Tylenol) 650 mg Q6HP PRN PO HEADACHE or DISCOMFORT Last administered on 10/28/16 21:23; Start 10/22/16 at 06:00; Stop 11/21/16 at 05:59 Al Hydrox/Mg Hydrox/Simethicone (Mylanta) 30 ml Q4HP PRN PO HEARTBURN/ INDIGESTION; Start 10/22/16 at 06:00; Stop 11/21/16 at 05:59 Bupropion HCl (Wellbutrin Xl) 150 mg NOW ONCE PO Last administered on 09:53; Start 10/29/16 at 09:45; Stop 10/29/16 at 09:46; Status DC Bupropion HCl (Wellbutrin Xl) 150 mg QAM PO Last administered on 10/29/16 08: 43; Start 10/23/16 at 09:00; Stop 10/29/16 at 10:21; Status DC Bupropion HCl (Wellbutrin Xl) 300 mg QAM PO Last administered on 10/31/16 09: 29; Start 10/30/16 at 09:00; Stop 11/29/16 at 08:59 Home Med (Med Rec Complete!) ASDIRECTED XX ; Start 10/22/16 at 07:00; Stop 08/28 at 07:00; Status DC Hydroxyzine HCl (Atarax) 50 mg Q6HP PRN PO ANXIETY Last administered on 09:30; Start 10/22/16 at 12:30; Stop 11/21/16 at 12:29 Lorazepam (Ativan) 1 mg Q4HP PRN PO ANXIETY; Start 10/22/16 at 06:00; Stop at 11:03; Status DC Magnesium Hydroxide (Milk Of Magnesia) 30 ml DAILYPRN PRN PO CONSTIPATION; Start 10/22/16 at 06:00; Stop 11/21/16 at 05:59 Quetiapine Fumarate (SEROquel) 25 mg Q6HP PRN PO Anxiety/Agitation; Start 10/31 at 11:30; Stop 11/30/16 at 11:29 Trazodone HCl (Desyrel) 25 mg QHSP PRN PO INSOMNIA Last administered on 22:04; Start 10/30/16 at 15:15; Stop 11/29/16 at 15:14 Trazodone HCl (Desyrel) 50 mg QHSP PRN PO INSOMNIA Last administered on 23:28; Start 10/22/16 at 06:00; Stop 10/27/16 at 18:52; Status DC Allergies Coded Allergies: Clarithromycin (Unverified Allergy, Intermediate, rash, 10/22/16) Griselda Bang Oct 31, 2016 19:01
[2016-11-01] MEDS: traZODone 25MG PER 1/2 TABLET PO PRN (00:07)
[2016-11-01 06:34] VITALS: BP 115/65
[2016-11-01] MEDS: buPROPion **XL** TABLET 150MG (WELLBUTRIN XL) PO SCH (08:53)
[2016-11-01 18:00] VITALS: BP 117/62
[2016-11-02] MEDS: traZODone 25MG PER 1/2 TABLET PO PRN ×2 (00:01→22:55)
[2016-11-02 06:19] VITALS: BP 119/62
[2016-11-02] MEDS: buPROPion **XL** TABLET 150MG (WELLBUTRIN XL) PO SCH (09:08)
[2016-11-02 18:00] VITALS: BP 120/66
[2016-11-03 06:38] VITALS: BP 130/68
[2016-11-03] MEDS: buPROPion **XL** TABLET 150MG (WELLBUTRIN XL) PO SCH (08:54)
[2016-11-03] MEDS: hydrOXYzine 50 MG TAB PO PRN (11:06)
[2016-11-03 18:00] VITALS: BP 122/64
--- NOTE | 2016-11-03 18:02 | IPNPDOC ---
[facility] Progress Note Progress Note DATE OF SERVICE: 11/03/16 CHIEF COMPLAINT: Pt. feels like he was overwhelmed with the situational stressors of his grandfather having terminal cancer, possible brain tumor in mom , divorce end. HISTORY: Patient is observed to be visible on unit, interacting with peers and lounge, attending groups, meets readily with conventional underwriter in office today and informs conventional underwriter he feels "very anxious" regarding "everything that is going on. Patient has taken PRN hydroxyzine in effort to reduce symptoms of anxiety, indicates medication is helping, denies agitation. Patient rates current anxiety level 8/ 10; "about being discharged", depression 6-04/20; "I feel hopeless", denies suicidal and homicidal ideation, denies audiovisual hallucinations, and denies urge to engage in self-injurious behavior. Patient reiterates he remains depressed and anxious with regard to pending legal charges and unknown future in [employer]. Patient denies mood lability and has no tearfulness today. Patient denies medication side effects. Patient states he took trazodone 25 mg po at bedtime last night, notes he is sleeping approx 3-4 hours per night. Pt's record reflects ore per staff visits thru the night. Patient denies nightmares , indicates concentration and energy levels remain normal, indicates appetite is stable. Patient notes mother continues to visit with patient regularly and feels contact with family is positive and supportive. MEDICAL HISTORY: Patient denies history of seizure, endorses history of concussions in high school from football, notes he was evaluated by PCM. Patient endorses history of kidney stones and being treated for rhabdomyolysis in past. VITAL SIGNS: Please see below. 95.4 67 16 130/68 CURRENT MEDICATIONS: See below. Continue Wellbutrin XL to 300 mg po q am, continue Hydroxyzine 50 mg po q 6 hours PRN anxiety, continue trazodone 25 mg po hs PRN insomnia. NEW TEST RESULTS: New lab results available on TSH and WBC, within normal limits. On admission, labs indicated elevated WBC, glucose, TSH, alkaline phosphatase. Leukocytosis, patient is afebrile and asymptomatic. AST low on admission. UDS negative on admission. EKG 10/23/16 SINUS RHYTHM MENTAL STATUS EXAMINATION: Patient is a 21-year old male, who is cooperative, anxious about numerous situational stressors, good hygiene today, dressed in own clothing, appears stated age, with a steady gait. Speech: Is normal rate, rhythm, volume, coherent, and spontaneous Thought processes: Clear, goal directed. Rate of thoughts: Normal Thought content: Logical, denies current suicidal or homicidal ideation, denies audiovisual hallucinations, delusions, paranoia, obsessions and compulsions. Denies nightmares. Pt. states he feels like "A tree that bears no fruit, hollow , empty, broken, " - Pt. states this is what he wrote on his activity paper bag. Abstract reasoning: Within normal limits. Computation: Within normal limits. Associations: Intact. Abnormal or psychotic thoughts: Denies audiovisual hallucinations, delusions, paranoia, obsessions and compulsions. Denies nightmares. Pt. feels he is preoccupied with his "overwhelming" situational issues. Judgment: Fair Insight: Fair Oriented to: Time, place, person and surroundings. Recent and Remote Memory: Intact. Pt. tells conventional underwriter that he has been charged with assaulting a child, tells conventional underwriter he knows nothing about it, "I can't remember". Attention Span and Concentration: Good. Language: Normal. Fund of knowledge: Adequate. Mood: "Anxious, extremely, anxiety". Patient appears slightly anxious, no tearfulness, no lability noted today. 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 Patient denies knowledge of any new developments in his legal challenges, remains concerned about [employer] future and pending legal charges. In inpatient environment patient denies current suicidal and homicidal ideation and is able to effectively engage in the safety planning process verbalizing awareness of how to access supportive services on the unit and agreeing to do so if needed. Patient does not mention any reservations or worries about suicidal thoughts if discharged. Patient was encouraged to continue participating in unit programming. Pt. states breathing, activity helps for a coping strategies, pt. cannot name others that help. Patient is requesting to continue Wellbutrin XL at 300 mg po q am dose, indicates hydroxyzine remains effective as needed or anxiety. Patient is requesting to continue trazodone at 25 mg po hs PRN dose for insomnia, may be repeated x 1 for better quality and duration of sleep. Maili started to help with mood swings, suicidal ideation. To consider Paroxetine, decrease in bupropion dosing. Patient denies medication side effects. Will continue to monitor patient 's response to medications and monitor for side effects. Patient remains aware that his discharge plan is currently to return to [facility] for psychotherapy and medication management services, YELITZA, and IOP evaluation. MANAGEMENT PLAN: Continue Wellbutrin XL to 300 mg po q am, continue Hydroxyzine 50 mg po q 6 hours PRN anxiety, continue trazodone 25 mg po hs PRN insomnia; may repeat x 1. Start lithium 150 mg po q hs. Discontinued quetiapine 25 mg po q 6h prn A/A. Maintain safety precautions Patient to attend groups and participate in unit programming to develop coping strategies Engage patient in discharge planning process, chain of command meeting arranged for this morning at 10:30 AM Patient to attend [facility], [facility], and IOP Patient to follow up with [facility] upon discharge TIME SPENT: 25 minutes Vital Signs/I&O Vital Signs Date Time Temp Pulse Resp B/P Pulse Ox O2 Delivery O2 Flow Rate FiO2 11/03/16 06:38 95.4 67 16 130/68 Current Medications Current Medications Acetaminophen (Tylenol) 650 mg Q6HP PRN PO HEADACHE or DISCOMFORT Last administered on 10/28/16 21:23; Start 10/22/16 at 06:00; Stop 11/21/16 at 05:59 Al Hydrox/Mg Hydrox/Simethicone (Mylanta) 30 ml Q4HP PRN PO HEARTBURN/ INDIGESTION; Start 10/22/16 at 06:00; Stop 11/21/16 at 05:59 Bupropion HCl (Wellbutrin Xl) 150 mg QAM PO Last administered on 10/29/16 08: 43; Start 10/23/16 at 09:00; Stop 10/29/16 at 10:21; Status DC Bupropion HCl (Wellbutrin Xl) 300 mg QAM PO Last administered on 11/03/16 08: 54; Start 10/30/16 at 09:00; Stop 11/29/16 at 08:59 Home Med (Med Rec Complete!) ASDIRECTED XX ; Start 10/22/16 at 07:00; Stop 08/28 at 07:00; Status DC Hydroxyzine HCl (Atarax) 50 mg Q6HP PRN PO ANXIETY Last administered on 11:06; Start 10/22/16 at 12:30; Stop 11/21/16 at 12:29 Maili Carbonate (Maili Carbonate) 150 mg QHS PO ; Start 11/03/16 at 21:00; Stop 12/03/16 at 20:59 Lorazepam (Ativan) 1 mg Q4HP PRN PO ANXIETY; Start 10/22/16 at 06:00; Stop at 11:03; Status DC Magnesium Hydroxide (Milk Of Magnesia) 30 ml DAILYPRN PRN PO CONSTIPATION; Start 10/22/16 at 06:00; Stop 11/21/16 at 05:59 Quetiapine Fumarate (SEROquel) 25 mg Q6HP PRN PO Anxiety/Agitation; Start 10/31 at 11:30; Stop 11/03/16 at 12:17; Status DC Trazodone HCl (Desyrel) 25 mg QHSP PRN PO INSOMNIA Last administered on 22:55; Start 10/30/16 at 15:15; Stop 11/29/16 at 15:14 Trazodone HCl (Desyrel) 50 mg QHSP PRN PO INSOMNIA Last administered on 23:28; Start 10/22/16 at 06:00; Stop 10/27/16 at 18:52; Status DC Allergies Coded Allergies: Clarithromycin (Unverified Allergy, Intermediate, rash, 10/22/16) CONY GARBER NP Nov 03, 2016 18:02
[2016-11-03] MEDS ORDERED: LITHIUM CARBONATE 150 MG CAP PO SCH (21:00)
[2016-11-03] MEDS: traZODone 25MG PER 1/2 TABLET PO PRN (22:49)
[2016-11-04 06:28] VITALS: BP 139/83
[2016-11-04] MEDS: buPROPion **XL** TABLET 150MG (WELLBUTRIN XL) PO SCH (08:46)
--- NOTE | 2016-11-04 16:53 | IPNPDOC ---
[facility] Progress Note Progress Note DATE: 11/04/16 HISTORY: Patient is observed to be visible on unit, interacting with peers and lounge, attending groups, meets readily with verse writer in office today and informs verse writer he feels "okay, still anxious and I have thoughts but only when thinking about the legal stuff going on." Patient indicates Wellbutrin XL continues to help with mood and hydroxyzine is effective in reducing symptoms of anxiety when needed; patient continues to deny agitation. Patient rates current anxiety level of 6/10, depression 5/10, denies suicidal and homicidal ideation, denies audiovisual hallucinations, and denies urge to engage in self-injurious behavior. Patient indicates he last experienced passive SI 3 days ago, describes thoughts of "it would just be easier to just not be here," denies having plan or intent at the time and is quick to note, "I know it's situational." Patient continues to attribute symptoms to pending legal charges and unknown future in [employer]. Patient denies mood lability and has no tearfulness today. Patient denies medication side effects, notes he has taken [place] X 1, states he does not feel medication is helping and states he prefers not to take medication. Patient reports improved sleep, adds he woke up X 1 last night, denies nightmare symptoms, declines med change stating he wants to trial Trazodone at 50 mg dose tonight. Patient denies nightmares, indicates concentration and energy levels remain normal, indicates appetite is stable. Patient reports reduced anxiety due to father recently making arrangements for patient to have legal representation, notes mother continues to visit with patient regularly and feels contact with family remains positive and supportive. MEDICAL HISTORY: Patient denies history of seizure, endorses history of concussions in high school from football, notes he was evaluated by PCM. Patient endorses history of kidney stones and being treated for rhabdomyolysis in past. VITAL SIGNS: Please see below. CURRENT MEDICATIONS: See below. Continue Wellbutrin XL to 300 mg po q am, continue Hydroxyzine 50 mg po q 6 hours PRN anxiety, increase Trazodone to 50 mg po hs PRN insomnia. NEW TEST RESULTS: New lab results available on TSH and WBC, within normal limits. On admission, labs indicated elevated WBC, glucose, TSH, alkaline phosphatase. Leukocytosis, patient is afebrile and asymptomatic. AST low on admission. UDS negative on admission. EKG 10/23/16 SINUS RHYTHM MENTAL STATUS EXAMINATION: Patient is a 21-year old male, who is cooperative, anxious about numerous situational stressors, good hygiene today, dressed in own clothing, appears stated age, with a steady gait. Speech: Is normal rate, rhythm, volume, coherent, and spontaneous Thought processes: Clear, goal directed. Rate of thoughts: Normal Thought content: Logical, denies current suicidal or homicidal ideation, denies audiovisual hallucinations, delusions, paranoia, obsessions and compulsions. Abstract reasoning: Within normal limits. Computation: Within normal limits. Associations: Intact. Abnormal or psychotic thoughts: Denies audiovisual hallucinations, delusions, paranoia, obsessions and compulsions. Denies nightmares. Pt. feels he is preoccupied with his "overwhelming" situational issues. Judgment: Fair Insight: Fair Oriented to: Time, place, person and surroundings. Recent and Remote Memory: Intact. Attention Span and Concentration: Good. Language: Normal. Fund of knowledge: Adequate. Mood: "Worried about the legal stuff but ok." Patient appears slightly anxious, no tearfulness, no lability noted today. Affect: Constricted, congruent with affect. 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 Patient remains more visible in milieu and is easily engaged at time of interaction. Patient denies knowledge of any new developments in his legal challenges, remains concerned about [employer] future and pending legal charges. Patient denies current suicidal and homicidal ideation and is able to effectively engage in the safety planning process verbalizing awareness of how to access supportive services on the unit and agreeing to do so if needed. Patient does not mention any reservations or worries about suicidal thoughts if discharged. Patient was encouraged to continue participating in unit programming. Patient is requesting to continue Wellbutrin XL at 300 mg po q am dose, indicates hydroxyzine remains effective as needed or anxiety, states he will repeat Trazodone 25 mg po tonight if needed for sleep. Patient is requesting discontinuation of [place] which was initiated by other provider in effort to reduce apparently reported mood swings and suicidal ideation. Patient denies medication side effects. Will continue to monitor patient's response to medications and monitor for side effects. Patient remains aware that his discharge plan is currently to return to [facility] outpatient behavioral health for psychotherapy and medication management services, YELITZA, and IOP evaluation. MANAGEMENT PLAN: Continue Wellbutrin XL to 300 mg po q am, continue Hydroxyzine 50 mg po q 6 hours PRN anxiety, continue trazodone 25 mg po hs PRN insomnia; may repeat x 1. Discontinue lithium 150 mg po q hs. Maintain safety precautions Patient to attend groups and participate in unit programming to develop coping strategies Engage patient in discharge planning process, chain of command meeting arranged for this morning at 10:30 AM Patient to attend [place] outpatient behavioral health, YELITZA, and IOP Patient to follow up with [place] [facility] upon discharge Vital Signs Vital Signs Date Time Temp Pulse Resp B/P Pulse Ox O2 Delivery O2 Flow Rate FiO2 11/04/16 06:28 97.0 92 20 139/83 Current Medications Current Medications Acetaminophen (Tylenol) 650 mg Q6HP PRN PO HEADACHE or DISCOMFORT Last administered on 10/28/16 21:23; Start 10/22/16 at 06:00; Stop 11/21/16 at 05:59 Al Hydrox/Mg Hydrox/Simethicone (Mylanta) 30 ml Q4HP PRN PO HEARTBURN/ INDIGESTION; Start 10/22/16 at 06:00; Stop 11/21/16 at 05:59 Bupropion HCl (Wellbutrin Xl) 150 mg QAM PO Last administered on 10/29/16 08: 43; Start 10/23/16 at 09:00; Stop 10/29/16 at 10:21; Status DC Bupropion HCl (Wellbutrin Xl) 300 mg QAM PO Last administered on 11/04/16 08: 46; Start 10/30/16 at 09:00; Stop 11/29/16 at 08:59 Home Med (Med Rec Complete!) ASDIRECTED XX ; Start 10/22/16 at 07:00; Stop 08/28 at 07:00; Status DC Hydroxyzine HCl (Atarax) 50 mg Q6HP PRN PO ANXIETY Last administered on 11:06; Start 10/22/16 at 12:30; Stop 11/21/16 at 12:29 [place] Carbonate ([place] Carbonate) 150 mg QHS PO Last administered on 21:46; Start 11/03/16 at 21:00; Stop 12/03/16 at 20:59 Lorazepam (Ativan) 1 mg Q4HP PRN PO ANXIETY; Start 10/22/16 at 06:00; Stop at 11:03; Status DC Magnesium Hydroxide (Milk Of Magnesia) 30 ml DAILYPRN PRN PO CONSTIPATION; Start 10/22/16 at 06:00; Stop 11/21/16 at 05:59 Quetiapine Fumarate (SEROquel) 25 mg Q6HP PRN PO Anxiety/Agitation; Start 10/31 at 11:30; Stop 11/03/16 at 12:17; Status DC Trazodone HCl (Desyrel) 25 mg QHSP PRN PO INSOMNIA Last administered on 22:49; Start 10/30/16 at 15:15; Stop 11/29/16 at 15:14 Trazodone HCl (Desyrel) 50 mg QHSP PRN PO INSOMNIA Last administered on 23:28; Start 10/22/16 at 06:00; Stop 10/27/16 at 18:52; Status DC Allergies Coded Allergies: Clarithromycin (Unverified Allergy, Intermediate, rash, 10/22/16) Griselda Bang Nov 04, 2016 16:53
[2016-11-04 18:00] VITALS: BP 102/57
[2016-11-04] MEDS: traZODone 25MG PER 1/2 TABLET PO PRN (23:10)
[2016-11-05 06:31] VITALS: BP 130/79
[2016-11-05] MEDS: buPROPion **XL** TABLET 150MG (WELLBUTRIN XL) PO SCH (09:25)
--- NOTE | 2016-11-05 11:57 | IPNPDOC ---
[facility] Progress Note Progress Note DATE OF SERVICE: 11/05/16 HISTORY: Patient is observed to be visible on unit, interacting with peers and lounge, attending groups, meets readily with staff writer in office. Patient reports anxiety 10, depression /10, denies suicidal and homicidal ideation, denies audiovisual hallucinations, denies urge to engage in self-injurious behavior. Patient denies passive suicidal ideation denies experiencing recent thoughts of harming self. Patient reports improved sleep, indicates he slept through the night last night, denies nightmare symptoms, indicates trazodone at the 25 mg dose was effective. Patient continues to describe symptoms of anxiety and depression as situational, adds he feels Wellbutrin remains effective in helping him cope with current life stressors. Patient indicates he is attempting to communicate with his trial attorney regarding options, states he remains interested in participating in long-term care. Patient states concentration and energy levels remain normal, indicates appetite is stable. MEDICAL HISTORY: Patient denies history of seizure, endorses history of concussions in high school from football, notes he was evaluated by PCM. Patient endorses history of kidney stones and being treated for rhabdomyolysis in past. VITAL SIGNS: Please see below. CURRENT MEDICATIONS: See below. Continue Wellbutrin XL to 300 mg po q am, continue Hydroxyzine 50 mg po q 6 hours PRN anxiety, continue Trazodone 25 mg po hs PRN insomnia, okay to repeat 1. NEW TEST RESULTS: No new lab results. Most recent lab results available on TSH and WBC, within normal limits. On admission, labs indicated elevated WBC, glucose, TSH, alkaline phosphatase. Leukocytosis, patient is afebrile and asymptomatic. AST low on admission. UDS negative on admission. EKG 10/23/16 SINUS RHYTHM MENTAL STATUS EXAMINATION: Patient is a 21-year old male, who is cooperative, anxious about numerous situational stressors, good hygiene today, dressed in own clothing, appears stated age, with a steady gait. Speech: Is normal rate, rhythm, volume, coherent, and spontaneous Thought processes: Clear, goal directed. Rate of thoughts: Normal Thought content: Logical, denies current suicidal or homicidal ideation, denies audiovisual hallucinations, delusions, paranoia, obsessions and compulsions. Abstract reasoning: Within normal limits. Computation: Within normal limits. Associations: Intact. Abnormal or psychotic thoughts: Denies audiovisual hallucinations, delusions, paranoia, obsessions and compulsions. Denies nightmares. Pt. feels he is preoccupied with his "overwhelming" situational issues. Judgment: Fair Insight: Fair Oriented to: Time, place, person and surroundings. Recent and Remote Memory: Intact. Attention Span and Concentration: Good. Language: Normal. Fund of knowledge: Adequate. Mood: "Okay, just trying to talk to my trial attorney." Patient appears less anxious today, no tearfulness, no lability noted today. Affect: Constricted but brightens at times, congruent with affect. 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 Patient denies knowledge of any new developments in his legal challenges, remains concerned about [employer] future and pending legal charges. Patient denies current suicidal and homicidal ideation and is able to effectively engage in the safety planning process verbalizing awareness of how to access supportive services on the unit and agreeing to do so if needed. Patient makes no mention today of concerns related to suicidal ideation if discharged, however, remains anxious and depressed related to legal charges and unknown [employer] future. Patient was encouraged to continue participating in unit programming. Patient is requesting to continue Wellbutrin XL at 300 mg po q am dose, indicates hydroxyzine remains effective as needed or anxiety, states he will repeat Trazodone 25 mg po at night for sleep if needed. Patient denies medication side effects. Will continue to monitor patient's response to medications and monitor for side effects. Patient remains aware that health sciences program coordinator and NCM at [place] are investigating the possibility of patient attending long-term care, however, his discharge plan is currently to return to [facility] outpatient behavioral health for psychotherapy and medication management services, YELITZA, and IOP evaluation. MANAGEMENT PLAN: Continue Wellbutrin XL to 300 mg po q am, continue Hydroxyzine 50 mg po q 6 hours PRN anxiety, continue trazodone 25 mg po hs PRN insomnia; may repeat x 1. Maintain safety precautions Patient to attend groups and participate in unit programming to develop coping strategies Engage patient in discharge planning process, chain of command meeting arranged for this morning at 10:30 AM Patient to attend [place] outpatient behavioral health, YELITZA, and IOP Patient to follow up with [place] [facility] upon discharge Vital Signs Vital Signs Date Time Temp Pulse Resp B/P Pulse Ox O2 Delivery O2 Flow Rate FiO2 11/05/16 06:31 95.6 107 18 130/79 Current Medications Current Medications Acetaminophen (Tylenol) 650 mg Q6HP PRN PO HEADACHE or DISCOMFORT Last administered on 10/28/16 21:23; Start 10/22/16 at 06:00; Stop 11/21/16 at 05:59 Al Hydrox/Mg Hydrox/Simethicone (Mylanta) 30 ml Q4HP PRN PO HEARTBURN/ INDIGESTION; Start 10/22/16 at 06:00; Stop 11/21/16 at 05:59 Bupropion HCl (Wellbutrin Xl) 150 mg QAM PO Last administered on 10/29/16 08: 43; Start 10/23/16 at 09:00; Stop 10/29/16 at 10:21; Status DC Bupropion HCl (Wellbutrin Xl) 300 mg QAM PO Last administered on 11/05/16 09: 25; Start 10/30/16 at 09:00; Stop 11/29/16 at 08:59 Home Med (Med Rec Complete!) ASDIRECTED XX ; Start 10/22/16 at 07:00; Stop 08/28 at 07:00; Status DC Hydroxyzine HCl (Atarax) 50 mg Q6HP PRN PO ANXIETY Last administered on 11:06; Start 10/22/16 at 12:30; Stop 11/21/16 at 12:29 [place] Carbonate ([place] Carbonate) 150 mg QHS PO Last administered on 21:46; Start 11/03/16 at 21:00; Stop 11/04/16 at 16:54; Status DC Lorazepam (Ativan) 1 mg Q4HP PRN PO ANXIETY; Start 10/22/16 at 06:00; Stop at 11:03; Status DC Magnesium Hydroxide (Milk Of Magnesia) 30 ml DAILYPRN PRN PO CONSTIPATION; Start 10/22/16 at 06:00; Stop 11/21/16 at 05:59 Quetiapine Fumarate (SEROquel) 25 mg Q6HP PRN PO Anxiety/Agitation; Start 10/31 at 11:30; Stop 11/03/16 at 12:17; Status DC Trazodone HCl (Desyrel) 25 mg QHSP PRN PO INSOMNIA Last administered on 23:10; Start 10/30/16 at 15:15; Stop 11/29/16 at 15:14 Trazodone HCl (Desyrel) 50 mg QHSP PRN PO INSOMNIA Last administered on 23:28; Start 10/22/16 at 06:00; Stop 10/27/16 at 18:52; Status DC Allergies Coded Allergies: Clarithromycin (Unverified Allergy, Intermediate, rash, 10/22/16) Griselda Bang Nov 05, 2016 11:57
[2016-11-05 18:18] VITALS: BP 125/63
[2016-11-05] MEDS ORDERED: LORATADINE 10 MG TAB PO ONE (22:15)
[2016-11-05] MEDS ORDERED: FLUTICASONE PROP 0.05% NASAL SPRAY 16 GM (FLONASE) ONE (22:15)
[2016-11-05] MEDS: traZODone 25MG PER 1/2 TABLET PO PRN (23:02)
[2016-11-06 06:45] VITALS: BP 111/58
[2016-11-06] MEDS: buPROPion **XL** TABLET 150MG (WELLBUTRIN XL) PO SCH (09:13)
--- NOTE | 2016-11-06 16:57 | IPNPDOC ---
[facility] Progress Note Progress Note DATE: 11/06/16 HISTORY: Patient is observed to be visible on unit, interacting with peers and lounge, attending groups, meets readily with ticket writer in office. Patient reports anxiety /10, depression /10, denies suicidal and homicidal ideation, denies audiovisual hallucinations, denies urge to engage in self-injurious behavior. Patient denies passive suicidal ideation and denies recent thoughts of harming self, denies thoughts of self-harm if discharged from the hospital. Patient reports improved sleep, indicates again slept through the night last night, denies nightmare symptoms, indicates trazodone is effective. Patient continues to describe symptoms of anxiety and depression as situational, adds he feels Wellbutrin remains effective in helping him cope with current life stressors. Patient indicates he has made contact with his employment attorney which helped reduce some of his anxiety, states he remains interested in participating in long-term care. Patient states concentration and energy levels remain normal, indicates appetite is stable. MEDICAL HISTORY: Patient denies history of seizure, endorses history of concussions in high school from football, notes he was evaluated by PCM. Patient endorses history of kidney stones and being treated for rhabdomyolysis in past. VITAL SIGNS: Please see below. CURRENT MEDICATIONS: See below. Continue Wellbutrin XL to 300 mg po q am, continue Hydroxyzine 50 mg po q 6 hours PRN anxiety, continue Trazodone 25 mg po hs PRN insomnia, okay to repeat 1. NEW TEST RESULTS: No new lab results. Most recent lab results available on TSH and WBC, within normal limits. On admission, labs indicated elevated WBC, glucose, TSH, alkaline phosphatase. Leukocytosis, patient is afebrile and asymptomatic. AST low on admission. UDS negative on admission. EKG 10/23/16 SINUS RHYTHM MENTAL STATUS EXAMINATION: Patient is a 21-year old male, who is cooperative, anxious about numerous situational stressors, good hygiene today, dressed in own clothing, appears stated age, with a steady gait. Speech: Is normal rate, rhythm, volume, coherent, and spontaneous Thought processes: Clear, goal directed. Rate of thoughts: Normal Thought content: Logical, denies current suicidal or homicidal ideation, denies audiovisual hallucinations, delusions, paranoia, obsessions and compulsions. Abstract reasoning: Within normal limits. Computation: Within normal limits. Associations: Intact. Abnormal or psychotic thoughts: Denies audiovisual hallucinations, delusions, paranoia, obsessions and compulsions. Denies nightmares. Pt. feels he is preoccupied with his "overwhelming" situational issues. Judgment: Fair Insight: Fair Oriented to: Time, place, person and surroundings. Recent and Remote Memory: Intact. Attention Span and Concentration: Good. Language: Normal. Fund of knowledge: Adequate. Mood: "All right, I just get anxious when I think about the legal stuff I have gone on." Patient appears less anxious today, no tearfulness, no lability noted today. Affect: Constricted but brightens at times, congruent with affect. 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 Patient indicates he has spoken with employment attorney who is in agreement that long-term care may be beneficial to patient, patient remains concerned about [employer] future and pending legal charges. Patient denies current suicidal and homicidal ideation and is able to effectively engage in the safety planning process and is able to verbalize awareness of how to access supportive services on the unit and agrees to do so if needed. Patient makes no mention today of concerns related to suicidal ideation if discharged, however, continues to express anxiety related to legal charges and unknown [employer] future. Patient was encouraged to continue participating in unit programming. Patient is requesting to continue Wellbutrin XL at 300 mg po q am dose, indicates hydroxyzine remains effective as needed or anxiety, states he Trazodone remains effective and denies medication side effects. Will continue to monitor patient' s response to medications and monitor for side effects. Patient remains aware that information systems coordinator and NCM at [place] are investigating the possibility of patient attending long-term care, however, his discharge plan is currently to return to [facility] outpatient behavioral health for psychotherapy and medication management services, YELITZA, and IOP evaluation. MANAGEMENT PLAN: Continue Wellbutrin XL to 300 mg po q am, continue Hydroxyzine 50 mg po q 6 hours PRN anxiety, continue trazodone 25 mg po hs PRN insomnia; may repeat x 1. Maintain safety precautions Patient to attend groups and participate in unit programming to develop coping strategies Engage patient in discharge planning process, communicate with [facility] regarding patient's ability to leave state to attend long- term care If patient does not attend long-term care, patient to attend [place] outpatient behavioral health, YELITZA, and IOP Patient to follow up with [place] PCM upon discharge TIME SPENT: 25 minutes. Vital Signs Vital Signs Date Time Temp Pulse Resp B/P Pulse Ox O2 Delivery O2 Flow Rate FiO2 11/06/16 06:45 96.3 82 16 111/58 Current Medications Current Medications Acetaminophen (Tylenol) 650 mg Q6HP PRN PO HEADACHE or DISCOMFORT Last administered on 10/28/16 21:23; Start 10/22/16 at 06:00; Stop 11/21/16 at 05:59 Al Hydrox/Mg Hydrox/Simethicone (Mylanta) 30 ml Q4HP PRN PO HEARTBURN/ INDIGESTION; Start 10/22/16 at 06:00; Stop 11/21/16 at 05:59 Bupropion HCl (Wellbutrin Xl) 150 mg QAM PO Last administered on 10/29/16 08: 43; Start 10/23/16 at 09:00; Stop 10/29/16 at 10:21; Status DC Bupropion HCl (Wellbutrin Xl) 300 mg QAM PO Last administered on 11/06/16 09: 13; Start 10/30/16 at 09:00; Stop 11/29/16 at 08:59 Home Med (Med Rec Complete!) ASDIRECTED XX ; Start 10/22/16 at 07:00; Stop 08/28 at 07:00; Status DC Hydroxyzine HCl (Atarax) 50 mg Q6HP PRN PO ANXIETY Last administered on 11:06; Start 10/22/16 at 12:30; Stop 11/21/16 at 12:29 [place] Carbonate ([place] Carbonate) 150 mg QHS PO Last administered on 21:46; Start 11/03/16 at 21:00; Stop 11/04/16 at 16:54; Status DC Lorazepam (Ativan) 1 mg Q4HP PRN PO ANXIETY; Start 10/22/16 at 06:00; Stop at 11:03; Status DC Magnesium Hydroxide (Milk Of Magnesia) 30 ml DAILYPRN PRN PO CONSTIPATION; Start 10/22/16 at 06:00; Stop 11/21/16 at 05:59 Quetiapine Fumarate (SEROquel) 25 mg Q6HP PRN PO Anxiety/Agitation; Start 10/31 at 11:30; Stop 11/03/16 at 12:17; Status DC Trazodone HCl (Desyrel) 25 mg QHSP PRN PO INSOMNIA Last administered on 23:02; Start 10/30/16 at 15:15; Stop 11/29/16 at 15:14 Trazodone HCl (Desyrel) 50 mg QHSP PRN PO INSOMNIA Last administered on 23:28; Start 10/22/16 at 06:00; Stop 10/27/16 at 18:52; Status DC Allergies Coded Allergies: Clarithromycin (Unverified Allergy, Intermediate, rash, 10/22/16) Griselda Bang Nov 06, 2016 16:57
[2016-11-06 18:00] VITALS: BP 121/71
[2016-11-06] MEDS: hydrOXYzine 50 MG TAB PO PRN (19:39)
[2016-11-07 06:56] VITALS: BP 121/77
[2016-11-07] MEDS: buPROPion **XL** TABLET 150MG (WELLBUTRIN XL) PO SCH (09:34)
--- NOTE | 2016-11-07 10:55 | IPNPDOC ---
[facility] Progress Note Progress Note DATE OF SERVICE: 11/07/16 HISTORY: Director Advertising met with patient today to evaluate treatment progress on inpatient unit. Patient had recently awoken at time of interaction, however was easily engaged and readily met with group underwriter in office. Patient has been visible on unit, interacting with peers and socializing and lounge, and attending groups. Patient reports anxiety 10/21, depression /, denies suicidal and homicidal ideation, denies audiovisual hallucinations, denies urge to engage in self- injurious behavior. Patient denies passive suicidal ideation and denies recent thoughts of harming self, today denies thoughts of self-harm if discharged from the hospital. Patient reports improved sleep, states he slept well last night ( contrary to sleep without entry), denies nighttime waking and denies nightmare symptoms. Patient indicates trazodone remains effective and denies medication side effects. Patient continues to describe symptoms of anxiety and depression as situational, adds he feels Wellbutrin remains effective in helping him cope with current life stressors. Patient indicates his mother will be visiting today and over the weekend, he has been in contact with his civil rights attorney, and reiterates he remains interested in discharging to long-term care. Patient states concentration and energy levels remain normal, indicates appetite is stable. MEDICAL HISTORY: Patient denies history of seizure, endorses history of concussions in high school from football, notes he was evaluated by PCM. Patient endorses history of kidney stones and being treated for rhabdomyolysis in past. VITAL SIGNS: Please see below. CURRENT MEDICATIONS: See below. Continue Wellbutrin XL to 300 mg po q am, continue Hydroxyzine 50 mg po q 6 hours PRN anxiety, continue Trazodone 25 mg po hs PRN insomnia, okay to repeat 1. NEW TEST RESULTS: No new lab results. Most recent lab results available on TSH and WBC, within normal limits. On admission, labs indicated elevated WBC, glucose, TSH, alkaline phosphatase. Leukocytosis, patient is afebrile and asymptomatic. AST low on admission. UDS negative on admission. EKG 10/23/16 SINUS RHYTHM MENTAL STATUS EXAMINATION: Patient is a 21-year old male, who is cooperative, less anxiety today about numerous situational stressors, exhibits adequate hygiene and is dressed in own clothing, appears stated age, ambulates with with steady gait. Speech: Is normal rate, rhythm, volume, coherent, and spontaneous Thought processes: Clear, goal directed. Rate of thoughts: Normal Thought content: Logical, denies current suicidal or homicidal ideation, denies audiovisual hallucinations, delusions, paranoia, obsessions and compulsions. Abstract reasoning: Within normal limits. Computation: Within normal limits. Associations: Intact. Abnormal or psychotic thoughts: Denies audiovisual hallucinations, delusions, paranoia, obsessions and compulsions. Denies nightmares. Pt. feels he is preoccupied with his "overwhelming" situational issues. Judgment: Fair Insight: Fair, some improvement Oriented to: Time, place, person and surroundings. Recent and Remote Memory: Intact. Attention Span and Concentration: Good. Language: Normal. Fund of knowledge: Adequate. Mood: "I'm okay, nothing new, just waiting to find out what can happen." Patient appears less anxious today, no tearfulness, no lability noted today. Affect: Constricted but brightens at times, congruent with affect. 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 Patient remains more visible in milieu and is easily engaged at time of interaction. Patient remains concerned about [employer] future and pending legal charges, indicates he finds unit programming helpful in terms of development of coping mechanisms. Patient denies current suicidal and homicidal ideation and is able to effectively engage in the safety planning process and is able to verbalize awareness of how to access supportive services on the unit and agrees to do so if needed. Patient makes no mention today of concerns related to suicidal ideation if discharged, however, continues to express anxiety related to legal charges and unknown [employer] future. Patient is requesting to continue Wellbutrin XL at 300 mg po q am dose, indicates hydroxyzine remains effective as needed or anxiety which he takes intermittently, adds Trazodone remains effective and denies medication side effects. Will continue to monitor patient's response to medications and monitor for side effects. Patient remains aware that demo coordinator and NCM at [place] are looking into patient's ability to leave the state to attend long- term care. Patient remains aware if he cannot leave the area his discharge plan will likely be to return to [facility] where he will participate in outpatient behavioral health for psychotherapy, medication management services, YELITZA, and IOP evaluation. MANAGEMENT PLAN: Continue Wellbutrin XL to 300 mg po q am, continue Hydroxyzine 50 mg po q 6 hours PRN anxiety, continue trazodone 25 mg po hs PRN insomnia; may repeat x 1. Maintain safety precautions Patient to attend groups and participate in unit programming to develop coping strategies Engage patient in discharge planning process, communicate with [facility] regarding patient's ability to leave state to attend long- term care If patient does not attend long-term care, patient to attend [place] outpatient behavioral health, YELITZA, and IOP Patient to follow up with [place] PCM upon discharge TIME SPENT: 25 minutes. Vital Signs Vital Signs Date Time Temp Pulse Resp B/P Pulse Ox O2 Delivery O2 Flow Rate FiO2 11/07/16 06:56 95.6 110 19 121/77 Current Medications Current Medications Acetaminophen (Tylenol) 650 mg Q6HP PRN PO HEADACHE or DISCOMFORT Last administered on 10/28/16 21:23; Start 10/22/16 at 06:00; Stop 11/21/16 at 05:59 Al Hydrox/Mg Hydrox/Simethicone (Mylanta) 30 ml Q4HP PRN PO HEARTBURN/ INDIGESTION; Start 10/22/16 at 06:00; Stop 11/21/16 at 05:59 Bupropion HCl (Wellbutrin Xl) 150 mg QAM PO Last administered on 10/29/16 08: 43; Start 10/23/16 at 09:00; Stop 10/29/16 at 10:21; Status DC Bupropion HCl (Wellbutrin Xl) 300 mg QAM PO Last administered on 11/07/16 09: 34; Start 10/30/16 at 09:00; Stop 11/29/16 at 08:59 Home Med (Med Rec Complete!) ASDIRECTED XX ; Start 10/22/16 at 07:00; Stop 08/28 at 07:00; Status DC Hydroxyzine HCl (Atarax) 50 mg Q6HP PRN PO ANXIETY Last administered on 19:39; Start 10/22/16 at 12:30; Stop 11/21/16 at 12:29 [place] Carbonate ([place] Carbonate) 150 mg QHS PO Last administered on 21:46; Start 11/03/16 at 21:00; Stop 11/04/16 at 16:54; Status DC Lorazepam (Ativan) 1 mg Q4HP PRN PO ANXIETY; Start 10/22/16 at 06:00; Stop at 11:03; Status DC Magnesium Hydroxide (Milk Of Magnesia) 30 ml DAILYPRN PRN PO CONSTIPATION; Start 10/22/16 at 06:00; Stop 11/21/16 at 05:59 Quetiapine Fumarate (SEROquel) 25 mg Q6HP PRN PO Anxiety/Agitation; Start 10/31 at 11:30; Stop 11/03/16 at 12:17; Status DC Trazodone HCl (Desyrel) 25 mg QHSP PRN PO INSOMNIA Last administered on 23:02; Start 10/30/16 at 15:15; Stop 11/29/16 at 15:14 Trazodone HCl (Desyrel) 50 mg QHSP PRN PO INSOMNIA Last administered on 23:28; Start 10/22/16 at 06:00; Stop 10/27/16 at 18:52; Status DC Allergies Coded Allergies: Clarithromycin (Unverified Allergy, Intermediate, rash, 10/22/16) Griselda Bang Nov 07, 2016 10:55
[2016-11-07 18:18] VITALS: BP 128/80
[2016-11-08 06:30] VITALS: BP 132/69
[2016-11-08] MEDS: buPROPion **XL** TABLET 150MG (WELLBUTRIN XL) PO SCH (09:40)
[2016-11-08 18:06] VITALS: BP 119/59
[2016-11-09 06:13] VITALS: BP 135/76
[2016-11-09] MEDS: buPROPion **XL** TABLET 150MG (WELLBUTRIN XL) PO SCH (09:10)
[2016-11-09 18:00] VITALS: BP 138/75
[2016-11-10 06:00] VITALS: BP 94/51
[2016-11-10] MEDS: buPROPion **XL** TABLET 150MG (WELLBUTRIN XL) PO SCH (08:40)
--- NOTE | 2016-11-10 16:16 | IPNPDOC ---
[facility] Progress Note Progress Note DATE OF SERVICE: 11/10/16 HISTORY: Psychotherapist Social Worker met with patient today to evaluate treatment progress on inpatient unit. Patient was in activity room watching TV, however was easily engaged and readily met with typewriter mechanic in office. Patient has been visible on unit , interacting with peers and socializing in lounge, going to activities and attending groups. Patient reports anxiety 11/21, depression 6-7 due to situational and floor issues. Pt. also states mom was here earlier today and had symptoms of a heart attack,was checked by staff and was OK, left for home. Pt. states mom has been living with him since August. Pt. feels depression and anxiety worsen with increased stress or situations. Pt. denies suicidal and homicidal ideation, denies audiovisual hallucinations, denies urge to engage in self-injurious behavior. Patient denies passive suicidal ideation and denies recent thoughts of harming self. Patient reports improved sleep, states he slept well last night , without the use of Trazodone. Pt. reports that he has not used trazodone since or Thu night. Pt. denies nighttime waking and denies nightmare symptoms. Patient continues to describe symptoms of anxiety and depression as situational. Patient reports his mother visited today and over the weekend and reiterates he remains interested in discharging to long-term care. MEDICAL HISTORY: Patient denies history of seizure, endorses history of concussions in high school from football, notes he was evaluated by PCM. Patient endorses history of kidney stones and being treated for rhabdomyolysis in past. VITAL SIGNS: Please see below. 96.5 65 16 94/51. CURRENT MEDICATIONS: See below. Continue Wellbutrin XL to 300 mg po q am, Hydroxyzine 50 mg po q 6 hours PRN anxiety, Trazodone 25 mg po hs PRN insomnia, okay to repeat 1. NEW TEST RESULTS: NA. Most recent lab results available on TSH and WBC, within normal limits. On admission, labs indicated elevated WBC, glucose, TSH, alkaline phosphatase. Leukocytosis, patient is afebrile and asymptomatic. AST low on admission. UDS negative on admission. EKG 10/23/16 SINUS RHYTHM MENTAL STATUS EXAMINATION: Patient is a 21-year old male, who is cooperative, does not appear to be anxious, exhibits adequate hygiene and is dressed in own clothing, appears stated age, ambulates with a steady gait. Pt. reports his weekend was "All right", states was boring, mom was here Sat and Sun. Speech: Is normal rate, rhythm, volume, coherent, and spontaneous Thought processes: Clear, goal directed. Rate of thoughts: Normal Thought content: Logical, denies current suicidal or homicidal ideation, denies audiovisual hallucinations, delusions, paranoia, obsessions and compulsions. Abstract reasoning: Within normal limits. Computation: Within normal limits. Associations: Intact. Abnormal or psychotic thoughts: Denies audiovisual hallucinations, delusions, paranoia, obsessions and compulsions. Denies nightmares or preoccupation. Judgment: Fair Insight: Fair, some improvement Oriented to: Time, place, person and surroundings. Recent and Remote Memory: Intact. Pt. states short term memory "has always been horrible due to numerous concussions". Pt. reports immediate and nursing home memory are "Ok". Attention Span and Concentration: Good. Language: Normal. Fund of knowledge: Adequate. Mood: "My mood today has been up and down. Situational stuff on unit and with mom". Patient does not appear anxious today, no tearfulness, no lability noted today. Affect: Constricted but brightens at times, does smile periodically, congruent with affect, rational, logical. 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 Patient remains concerned about [employer] future and pending legal charges, indicates he finds unit programming helpful in terms of development of coping mechanisms. Patient denies current suicidal and homicidal ideation and is able to effectively engage in the safety planning process and is able to verbalize awareness of how to access supportive services on the unit and agrees to do so if needed. Patient makes no mention today of concerns related to suicidal ideation if discharged, however, continues to express anxiety related to legal charges and unknown [employer] future. Patient is requesting to continue Wellbutrin XL at 300 mg po q am dose, indicates hydroxyzine remains effective as needed or anxiety which he takes intermittently, adds Trazodone remains effective and denies medication side effects. Will continue to monitor patient's response to medications and monitor for side effects. Patient remains aware that product safety coordinator and NCM at [place] are looking into patient's ability to leave the state to attend long- term care. Patient remains aware if he cannot leave the area his discharge plan will likely be to return to [facility] where he will participate in outpatient behavioral health for psychotherapy, medication management services, YELITZA, and IOP evaluation. MANAGEMENT PLAN: Continue Wellbutrin XL to 300 mg po q am, Hydroxyzine 50 mg po q 6 hours PRN anxiety, trazodone 25 mg po hs PRN insomnia; may repeat x 1. Maintain safety precautions, Patient to attend groups and participate in unit programming to develop coping strategies Engage patient in discharge planning process, communicate with [facility] regarding patient's ability [facility] to attend [facility]- term care If patient does not attend long-term care, patient to attend [place] outpatient behavioral health, YELITZA, and IOP Patient to follow up with [place] PCM upon discharge TIME SPENT: 25 minutes. Vital Signs Vital Signs Date Time Temp Pulse Resp B/P Pulse Ox O2 Delivery O2 Flow Rate FiO2 11/10/16 06:00 96.5 65 16 94/51 Current Medications Current Medications Medications (Trade) Dose Ordered Sig/Pratima Route PRN Reason Start Time Stop Time Status Last Admin Dose Admin Acetaminophen (Tylenol) 650 mg Q6HP PRN PO HEADACHE or DISCOMFORT 10/22/16 06:00 11/21/16 05:59 10/28/16 21:23 Al Hydrox/Mg Hydrox/Simethicone (Mylanta) 30 ml Q4HP PRN PO HEARTBURN/INDIGESTION 10/22/16 06:00 11/21/16 05:59 Bupropion HCl (Wellbutrin Xl) 150 mg QAM PO 10/23/16 09:00 10/29/16 10:21 DC 10/29/16 08:43 Bupropion HCl (Wellbutrin Xl) 300 mg QAM PO 10/30/16 09:00 11/29/16 08:59 11/10/16 08:40 Home Med (Med Rec Complete!) ASDIRECTED XX 10/22/16 07:00 10/22/16 07:00 DC Hydroxyzine HCl (Atarax) 50 mg Q6HP PRN PO ANXIETY 10/22/16 12:30 11/21/16 12:29 11/06/16 19:39 [place] Carbonate ([place] Carbonate) 150 mg QHS PO 11/03/16 21:00 11/04/16 16:54 DC 11/03/16 21:46 Lorazepam (Ativan) 1 mg Q4HP PRN PO ANXIETY 10/22/16 06:00 10/28/16 11:03 DC Magnesium Hydroxide (Milk Of Magnesia) 30 ml DAILYPRN PRN PO CONSTIPATION 10/22/16 06:00 11/21/16 05:59 Quetiapine Fumarate (SEROquel) 25 mg Q6HP PRN PO Anxiety/Agitation 10/31/16 11:30 11/03/16 12:17 DC Trazodone HCl (Desyrel) 25 mg QHSP PRN PO INSOMNIA 10/30/16 15:15 11/29/16 15:14 11/05/16 23:02 Trazodone HCl (Desyrel) 50 mg QHSP PRN PO INSOMNIA 10/22/16 06:00 10/27/16 18:52 DC 10/26/16 23:28 Allergies Coded Allergies: Clarithromycin (Unverified Allergy, Intermediate, rash, 10/22/16) CONY GARBER NP Nov 10, 2016 16:16 CONY GARBER NP Nov 10, 2016 16:16
[2016-11-10 18:00] VITALS: BP 134/82
[2016-11-11 06:45] VITALS: BP 97/54
[2016-11-11] MEDS: buPROPion **XL** TABLET 150MG (WELLBUTRIN XL) PO SCH (09:00)
[2016-11-11 18:00] VITALS: BP 113/56
--- NOTE | 2016-11-11 20:06 | IPNPDOC ---
[facility] Progress Note Progress Note DATE OF SERVICE: 11/11/16 HISTORY: Tank Worker met with patient today to evaluate treatment progress on inpatient unit. Patient was up out of bed, easily engaged, readily met with physician underwriter. Patient has been attending groups and participating in unit programming. Patient reports anxiety /10, depression /10, denies suicidal and homicidal ideation, denies audiovisual hallucinations, denies urge to engage in self-injurious behavior. Patient denies passive suicidal ideation and denies recent thoughts of harming self, today denies thoughts of self-harm if discharged from the hospital. Patient reports improved sleep, states he slept well last night, denies nighttime waking and denies nightmare symptoms. Patient states he has not been needing to take trazodone for sleep but that medication was effective when he was taking. Patient also feels Wellbutrin remains effective in controlling symptoms of anxiety and depression, denies medication side effects. Patient continues to describe symptoms of anxiety and depression as situational, feels medication regimen is helping him deal with current life stressors. Patient remains in agreement with plan to discharge to long-term care. Patient states concentration and energy levels remain normal, indicates appetite is stable. MEDICAL HISTORY: Patient denies history of seizure, endorses history of concussions in high school from football, notes he was evaluated by PCM. Patient endorses history of kidney stones and being treated for rhabdomyolysis in past. VITAL SIGNS: Please see below. CURRENT MEDICATIONS: See below. NEW TEST RESULTS: No new lab results. Most recent lab results available on TSH and WBC, within normal limits. On admission, labs indicated elevated WBC, glucose, TSH, alkaline phosphatase. Leukocytosis, patient is afebrile and asymptomatic. AST low on admission. UDS negative on admission. EKG 10/23/16 SINUS RHYTHM MENTAL STATUS EXAMINATION: Patient is a 21-year old male, who is cooperative, less anxiety today about numerous situational stressors, exhibits adequate hygiene and is dressed in own clothing, appears stated age, ambulates with with steady gait. Speech: Is normal rate, rhythm, volume, coherent, and spontaneous Thought processes: Clear, goal directed. Rate of thoughts: Normal Thought content: Logical, denies current suicidal or homicidal ideation, denies audiovisual hallucinations, delusions, paranoia, obsessions and compulsions. Abstract reasoning: Within normal limits. Computation: Within normal limits. Associations: Intact. Abnormal or psychotic thoughts: Denies audiovisual hallucinations, delusions, paranoia, obsessions and compulsions. Denies nightmares. Pt. feels he is preoccupied with his "overwhelming" situational issues. Judgment: Fair Insight: Fair, some improvement Oriented to: Time, place, person and surroundings. Recent and Remote Memory: Intact. Attention Span and Concentration: Good. Language: Normal. Fund of knowledge: Adequate. Mood: "I'm okay." Patient appears less anxious today, no tearfulness, no lability noted today. Affect: Constricted but brightens at times, congruent with affect. 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 Patient remains concerned about [employer] future and pending legal charges, indicates he finds unit programming helpful in terms of development of coping mechanisms. Patient denies current suicidal and homicidal ideation and is able to effectively engage in the safety planning process and is able to verbalize awareness of how to access supportive services on the unit and agrees to do so if needed. Patient makes no mention today of concerns related to suicidal ideation if discharged, however, continues to express anxiety related to legal charges and unknown [employer] future. Patient is requesting to continue Wellbutrin XL at 300 mg po q am dose, indicates hydroxyzine remains effective as needed for, has not needed to take for several days, adds Trazodone remains effective and denies medication side effects. Will continue to monitor patient's response to medications and monitor for side effects. Patient remains aware that regulatory affairs coordinator and NCM at [place] are looking into patient's ability to leave the state to attend long-term care. After completion of long-term care patient will return to [facility] to receive outpatient medication management and psychotherapy services, YELITZA, and IOP evaluation. MANAGEMENT PLAN: Continue Wellbutrin XL to 300 mg po q am, continue Hydroxyzine 50 mg po q 6 hours PRN anxiety, continue trazodone 25 mg po hs PRN insomnia; may repeat x 1. Maintain safety precautions Patient to attend groups and participate in unit programming to develop coping strategies Engage patient in discharge planning process, communicate with [facility] regarding patient's ability to leave state to attend long- term care If patient does not attend long-term care, patient to attend [place] outpatient behavioral health, YELITZA, and IOP Patient to follow up with [place] PCM upon discharge TIME SPENT: 35 minutes. Vital Signs Vital Signs Date Time Temp Pulse Resp B/P Pulse Ox O2 Delivery O2 Flow Rate FiO2 11/11/16 09:23 Room Air 11/11/16 06:45 96.0 54 18 97/54 Current Medications Current Medications Medications (Trade) Dose Ordered Sig/Pratima Route PRN Reason Start Time Stop Time Status Last Admin Dose Admin Acetaminophen (Tylenol) 650 mg Q6HP PRN PO HEADACHE or DISCOMFORT 10/22/16 06:00 11/21/16 05:59 10/28/16 21:23 Al Hydrox/Mg Hydrox/Simethicone (Mylanta) 30 ml Q4HP PRN PO HEARTBURN/INDIGESTION 10/22/16 06:00 11/21/16 05:59 Bupropion HCl (Wellbutrin Xl) 150 mg QAM PO 10/23/16 09:00 10/29/16 10:21 DC 10/29/16 08:43 Bupropion HCl (Wellbutrin Xl) 300 mg QAM PO 10/30/16 09:00 11/29/16 08:59 11/11/16 09:00 Home Med (Med Rec Complete!) ASDIRECTED XX 10/22/16 07:00 10/22/16 07:00 DC Hydroxyzine HCl (Atarax) 50 mg Q6HP PRN PO ANXIETY 10/22/16 12:30 11/21/16 12:29 11/06/16 19:39 [place] Carbonate ([place] Carbonate) 150 mg QHS PO 11/03/16 21:00 11/04/16 16:54 DC 11/03/16 21:46 Lorazepam (Ativan) 1 mg Q4HP PRN PO ANXIETY 10/22/16 06:00 10/28/16 11:03 DC Magnesium Hydroxide (Milk Of Magnesia) 30 ml DAILYPRN PRN PO CONSTIPATION 10/22/16 06:00 11/21/16 05:59 Quetiapine Fumarate (SEROquel) 25 mg Q6HP PRN PO Anxiety/Agitation 10/31/16 11:30 11/03/16 12:17 DC Trazodone HCl (Desyrel) 25 mg QHSP PRN PO INSOMNIA 10/30/16 15:15 11/29/16 15:14 11/05/16 23:02 Trazodone HCl (Desyrel) 50 mg QHSP PRN PO INSOMNIA 10/22/16 06:00 10/27/16 18:52 DC 10/26/16 23:28 Allergies Coded Allergies: Clarithromycin (Unverified Allergy, Intermediate, rash, 10/22/16) Griselda Bang Nov 11, 2016 20:06
[2016-11-12 06:39] VITALS: BP 110/52
[2016-11-12] MEDS: buPROPion **XL** TABLET 150MG (WELLBUTRIN XL) PO SCH (09:24)
--- NOTE | 2016-11-12 13:36 | IPNPDOC ---
[facility] Progress Note Progress Note DATE OF SERVICE: 11/12/16 HISTORY: Consulting Engineer met with patient today to evaluate treatment progress on inpatient unit. Patient was up out of bed, attending unit activities, engaging with peers, and readily met with senior mortgage underwriter. Patient reports anxiety 10, depression 4/10, denies suicidal and homicidal ideation, denies audiovisual hallucinations, denies urge to engage in self-injurious behavior. Patient denies passive suicidal ideation and denies recent thoughts of harming self, again today denies thoughts of self-harm if discharged from the hospital. Patient reports improved sleep, denies nighttime waking and denies nightmare symptoms. Patient denies challenges with energy level, appetite, and concentration and focus. Patient states he has not been needing to take trazodone for sleep but that medication was effective when he was taking. Patient also feels Wellbutrin remains effective in controlling symptoms of anxiety and depression, denies medication side effects. Patient continues to describe symptoms of anxiety and depression as situational and today he attributes to concerns related to [employer] future [place] legal challenges and preparing to transfer to long-term care tomorrow. Patient remains in agreement with plan to discharge to long-term care. MEDICAL HISTORY: Patient denies history of seizure, endorses history of concussions in high school from football, notes he was evaluated by PCM. Patient endorses history of kidney stones and being treated for rhabdomyolysis in past. VITAL SIGNS: Please see below. CURRENT MEDICATIONS: See below. NEW TEST RESULTS: No new lab results. Most recent lab results available on TSH and WBC, within normal limits. On admission, labs indicated elevated WBC, glucose, TSH, alkaline phosphatase. Leukocytosis, patient is afebrile and asymptomatic. AST low on admission. UDS negative on admission. EKG 10/23/16 SINUS RHYTHM MENTAL STATUS EXAMINATION: Patient is a 21-year old male, who is cooperative, less anxious today about multiple situational stressors but reports some anxiety related to transfer tomorrow, exhibits adequate hygiene and is dressed in own clothing, appears stated age, ambulates with with steady gait. Speech: Is normal rate, rhythm, volume, coherent, and spontaneous Thought processes: Clear, goal directed. Rate of thoughts: Normal Thought content: Logical, denies current suicidal or homicidal ideation, denies audiovisual hallucinations, delusions, paranoia, obsessions and compulsions. Abstract reasoning: Within normal limits. Computation: Within normal limits. Associations: Intact. Abnormal or psychotic thoughts: Denies audiovisual hallucinations, delusions, paranoia, obsessions and compulsions. Denies nightmares. Pt. feels he is preoccupied with his "overwhelming" situational issues. Judgment: Fair Insight: Fair, some improvement Oriented to: Time, place, person and surroundings. Recent and Remote Memory: Intact. Attention Span and Concentration: Good. Language: Normal. Fund of knowledge: Adequate. Mood: "I'm okay, getting ready to go." Patient appears anxious related to transfer, no tearfulness or mood lability noted Affect: Constricted but brightens at times, congruent with affect. 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 Patient remains more visible in milieu and is easily engaged at time of interaction. Patient remains concerned about [employer] future and pending legal charges, indicates he continues to find unit programming helpful in terms of development of coping mechanisms. Patient denies current suicidal and homicidal ideation and is able to effectively engage in the safety planning process and is able to verbalize awareness of how to access supportive services on the unit and agrees to do so if needed. Patient makes no mention today of concerns related to suicidal ideation if discharged, however, informs senior mortgage underwriter that he is confident that discharge to long-term care is appropriate for ongoing treatment. Patient continues to experience anxiety related to legal charges and unknown [employer] future. Patient is requesting to continue Wellbutrin XL at 300 mg po q am dose, indicates hydroxyzine and trazodone remain effective for anxiety and sleep respectively, when needed, and denies medication side effects. Will continue to monitor patient's response to medications and monitor for side effects. Patient has been informed that [facility] has indicated that patient is likely to discharge tomorrow and to be escorted by [facility] for her long-term care treatment. coordinator mining products is awaiting itinerary details from [place] and updated discharge information will be provided to patient once information is received from [place]. MANAGEMENT PLAN: Continue Wellbutrin XL to 300 mg po q am, continue Hydroxyzine 50 mg po q 6 hours PRN anxiety, continue trazodone 25 mg po hs PRN insomnia; may repeat x 1. Maintain safety precautions Patient to attend groups and participate in unit programming to develop coping strategies Engage patient in discharge planning process, communicate with [facility] regarding patient's ability to leave state to attend long- term care If patient does not attend long-term care, patient to attend [place] outpatient behavioral health, YELITZA, and IOP Patient to follow up with [place] PCM upon discharge TIME SPENT: 35 minutes. Vital Signs Vital Signs Date Time Temp Pulse Resp B/P Pulse Ox O2 Delivery O2 Flow Rate FiO2 11/12/16 09:44 Room Air 11/12/16 06:39 96.8 56 18 110/52 Current Medications Current Medications Medications (Trade) Dose Ordered Sig/Pratima Route PRN Reason Start Time Stop Time Status Last Admin Dose Admin Acetaminophen (Tylenol) 650 mg Q6HP PRN PO HEADACHE or DISCOMFORT 10/22/16 06:00 11/21/16 05:59 10/28/16 21:23 Al Hydrox/Mg Hydrox/Simethicone (Mylanta) 30 ml Q4HP PRN PO HEARTBURN/INDIGESTION 10/22/16 06:00 11/21/16 05:59 Bupropion HCl (Wellbutrin Xl) 150 mg QAM PO 10/23/16 09:00 10/29/16 10:21 DC 10/29/16 08:43 Bupropion HCl (Wellbutrin Xl) 300 mg QAM PO 10/30/16 09:00 11/29/16 08:59 11/12/16 09:24 Home Med (Med Rec Complete!) ASDIRECTED XX 10/22/16 07:00 10/22/16 07:00 DC Hydroxyzine HCl (Atarax) 50 mg Q6HP PRN PO ANXIETY 10/22/16 12:30 11/21/16 12:29 11/06/16 19:39 [place] Carbonate ([place] Carbonate) 150 mg QHS PO 11/03/16 21:00 11/04/16 16:54 DC 11/03/16 21:46 Lorazepam (Ativan) 1 mg Q4HP PRN PO ANXIETY 10/22/16 06:00 10/28/16 11:03 DC Magnesium Hydroxide (Milk Of Magnesia) 30 ml DAILYPRN PRN PO CONSTIPATION 10/22/16 06:00 11/21/16 05:59 Quetiapine Fumarate (SEROquel) 25 mg Q6HP PRN PO Anxiety/Agitation 10/31/16 11:30 11/03/16 12:17 DC Trazodone HCl (Desyrel) 25 mg QHSP PRN PO INSOMNIA 10/30/16 15:15 11/29/16 15:14 11/05/16 23:02 Trazodone HCl (Desyrel) 50 mg QHSP PRN PO INSOMNIA 10/22/16 06:00 10/27/16 18:52 DC 10/26/16 23:28 Allergies Coded Allergies: Clarithromycin (Unverified Allergy, Intermediate, rash, 10/22/16) Griselda Bang Nov 12, 2016 13:36
[2016-11-12 18:00] VITALS: BP 128/70
[2016-11-13 06:49] VITALS: BP 112/52
[2016-11-13] MEDS ORDERED: WELLTAB40 PO (08:35)
[2016-11-13] MEDS ORDERED: VIST50CA PO (08:41)
[2016-11-13] MEDS ORDERED: TRAZ25TA PO (08:44)
[2016-11-13] MEDS: hydrOXYzine 50 MG TAB PO PRN (09:26)
[2016-11-13] MEDS: buPROPion **XL** TABLET 150MG (WELLBUTRIN XL) PO SCH (09:26)
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
== END 2016-11-13 12:15 | disposition home or self-care (01) | DRG 885 ==
LOC: M ED 03:38 → M PSY 10:05
PROVIDERS: ADMIT Psychiatry & Neurology Psychiatry; ATTEND Psychiatry & Neurology Psychiatry
DX: F33.1 Major depressive disorder, recurrent, moderate (principal); F43.25 Adjustment disorder with mixed disturbance of emotions and conduct; F10.10 Alcohol abuse, uncomplicated; E66.3 Overweight; Z81.8 Family history of other mental and behavioral disorders; Z65.3 Problems related to other legal circumstances; Z63.79 Other stressful life events affecting family and household; Z91.82 Personal history of military deployment; Z68.31 Body mass index [BMI] 31.0-31.9, adult

== ENCOUNTER 2017-07-28 19:15 | Inpatient (IN) | payer OTHER ==
[~2017-07-28] VITALS: Ht 160 cm; Wt 81.8 kg
[~2017-07-28 19:15] MED LIST: TRAZ25TA PO; VIST50CA PO; WELLTAB40 PO
[2017-07-28] MEDS ORDERED: LUNE2TAB23 PO (19:25)
[2017-07-28 20:59] LABS: MEAN CORPUSCULAR HEMOGLOBIN 30.2 pg (27.0-33.0); MEAN CORPUSCULAR HGB CONC 34.8 g/dl (32.0-36.5); MEAN CORPUSCULAR VOLUME 86.8 fl (80.0-96.0); RED CELL DISTRIBUTION WIDTH 12.5 % (11.5-14.5); WHITE BLOOD COUNT 11.4 10^3/uL (4.0-10.0)
[2017-07-28 20:59] LABS: METHADONE URINE NEGATIVE (NEGATIVE)
[2017-07-28] MEDS ORDERED: ACETAMINOPHEN TAB 650MG DOSE (2X325MG) PO PRN (21:00)
[2017-07-28] MEDS ORDERED: traZODone 50 MG TAB PO PRN (21:00)
[2017-07-28] MEDS ORDERED: MAALOX 30 ML SUSP *UDC PO PRN (21:00)
[2017-07-28] MEDS ORDERED: MOM 30ML SUSPENSION UDC PO PRN (21:00)
[2017-07-28 21:07] LABS: ALBUMIN 4.5 GM/DL (3.2-5.2); ALBUMIN/GLOBULIN RATIO 1.61 (1.00-1.93); ALKALINE PHOSPHATASE 106 U/L (45-117); ALT/SGPT 39 U/L (12-78); ANION GAP 8 MEQ/L (8-16); AST/SGOT 16 U/L (15-37); BILIRUBIN,DIRECT 0.2 MG/DL (0.0-0.2); BILIRUBIN,TOTAL 0.6 MG/DL (0.2-1.0); BLOOD UREA NITROGEN 14 MG/DL (7-18); CALCIUM LEVEL 9.4 MG/DL (8.5-10.1); CARBON DIOXIDE LEVEL 26 MEQ/L (21-32); CHLORIDE LEVEL 105 MEQ/L (98-107); CREATININE FOR GFR 1.31 MG/DL (0.70-1.30); GLOMERULAR FILTRATION RATE > 60.0 (>60); GLUCOSE, FASTING 83 MG/DL (70-105); POTASSIUM SERUM 3.7 MEQ/L (3.5-5.1); SODIUM LEVEL 139 MEQ/L (136-145); TOTAL PROTEIN 7.3 GM/DL (6.4-8.2)
[2017-07-28] MEDS ORDERED: ESZO1TAB3 PO (21:18)
[2017-07-28 23:45] VITALS: BP 134/64
[2017-07-29] MEDS ORDERED: hydrOXYzine 50 MG TAB PO PRN (00:30)
[2017-07-29 06:22] VITALS: BP 118/67
[2017-07-29] MEDS ORDERED: buPROPion **XL** TABLET 150MG (WELLBUTRIN XL) PO SCH (09:00)
[2017-07-29] MEDS: SERTRALINE HCL 50 MG TAB PO SCH (09:00)
[2017-07-29] MEDS ORDERED: SERTRALINE HCL 25 MG TABLET PO SCH (09:00)
--- NOTE | 2017-07-29 11:22 | HPEPDOC ---
[facility] Medical History & Physical Date of Admission Jul 28, 2017 History and Physical PCP: [facility] ATTENDING: Dr. Darrel Wong HPI: 22yoM admitted to [facility] for unspecified depressive disorder, being medically examined today. No acute medical complaints today. Denies any fevers, chills, weakness, fatigue, ORTIZ, CP, SOB, cough, palpitations, abdominal pain, N/V /D or changes in bowel or bladder habits. PMHx: depression Anxiety Insomnia History of SI PSHX: tonsillectomy/adenoidectomy tympanostomy tubes Lymph node removed from neck, infection. 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 ROS: As noted in HPI, otherwise 11pt ROS of systems reviewed and unremarkable. PE: GEN: 22yoM, appears stated age. Well-nourished, well developed. No acute distress. Alert and oriented x 3. Pleasant, interactive. HEENT: Normocephalic, atraumatic. Pupils are equal, round, and reactive to light. Extraocular movements are intact. No nystagmus appreciated. Sclera are nonicteric. Conjunctiva without injection. Nose midline. Nasal turbinates without bogginess. EACs both patent BL. TMs both visualized and ward with good cone of light, no bulging or erythema. No facial asymmetry. Moist mucous membranes. Dentition fair. Pharynx pink and moist, no cobblestoning. Neck supple , trachea midline. No lymphadenopathy or thyromegaly appreciated. CHEST: Regular rate and rhythm, +S1, +S2 LUNGS: Clear to auscultation bilaterally. No wheezes, rales, or rhonchi. Breathing appears symmetric and easy. Patient is speaking in full sentences. No accessory muscle use. ABD: Round, soft, non-tender, non-distended. +Bowel sounds throughout. No rebound or guarding. No costovertebral angle tenderness. EXT: Pulses 2+ bilaterally dorsalis pedis and radial. No lower extremity edema appreciated. SKIN: [place], dry, warm. Capillary refill <2sec. No rashes. NEURO: Alert and oriented x 3. Cranial nerves III-XII are intact. No focal deficits appreciated. EKG: pending. A&P: 22yoM admitted to [facility] for unspecified depressive disorder 1. Psych. Plan per Psychiatry. Obtain baseline EKG to assure the safety of psychiatric medications as they can prolong the QT interval. 2. Leukocytosis. Patient is afebrile. Asymptomatic. Recheck CBC in AM. 3. Follow up with PCP on discharge. [facility]. 4. Elevated SCr. po intake is improved. Recheck BMP. 5. Staff member present throughout exam, Roshan Moran. Vital Signs Vital Signs Date Time Temp Pulse Resp B/P (MAP) Pulse Ox O2 Delivery O2 Flow Rate FiO2 07/29/17 06:22 98.5 99 18 118/67 (84) 07/28/17 23:45 Room Air 07/28/17 23:23 96 Laboratory Data Labs 24H Laboratory Tests 2 07/28/17 20:23: Nucleated Red Blood Cells % (auto) 0.0, Anion Gap 8, Glomerular Filtration Rate > 60.0, Calcium Level 9.4, Aspartate Amino Transf (AST/SGOT) 16, Alanine Aminotransferase (ALT/SGPT) 39, Alkaline Phosphatase 106, Total Bilirubin 0.6, Direct Bilirubin 0.2, Total Protein 7.3, Albumin 4.5, Albumin/Globulin Ratio 1.61, Thyroid Stimulating Hormone (TSH) 3.160, Salicylates Level < 1.7L, Acetaminophen Level < 2.0L, Ethyl Alcohol Level < 0.003 07/28/17 20:24: Urine Amphetamines Screen NEGATIVE, Urine Benzodiazepines Screen NEGATIVE, Urine Opiates Screen NEGATIVE, Urine Methadone Screen NEGATIVE, Urine Barbiturates Screen NEGATIVE, Urine Phencyclidine Screen NEGATIVE, Urine Cocaine Metabolite Screen NEGATIVE, Urine Cannabinoids Screen NEGATIVE CBC/BMP Laboratory Tests 07/28/17 20:23 Red Blood Count 5.07, Mean Corpuscular Volume 86.8, Mean Corpuscular Hemoglobin 30.2, Mean Corpuscular Hemoglobin Concent 34.8, Red Cell Distribution Width 12.5 Home Medications Scheduled Bupropion HCl (Wellbutrin Xl) 300 Mg Tab, 300 MG PO DAILY Scheduled PRN Eszopiclone (Eszopiclone) 3 Mg Tab, 3 MG PO DAILY PRN for SLEEP Hydroxyzine Pamoate (Vistaril) 50 Mg Cap, 50 MG PO Q6H PRN for ANXIETY Allergies Coded Allergies: Clarithromycin (Unverified Allergy, Intermediate, rash, 10/22/16) Zahira Mcdaniels Jul 29, 2017 11:22
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
[2017-07-29] MEDS ORDERED: QUEtiapine FUMARATE 50 MG TAB PO PRN (11:30)
[2017-07-29 18:13] VITALS: BP 137/60
[2017-07-30 06:00] VITALS: BP 126/65
[2017-07-30 06:40] VITALS: BP 83/44
[2017-07-30 06:50] VITALS: BP 119/62
[2017-07-30] MEDS: SERTRALINE HCL 50 MG TAB PO SCH (08:24)
[2017-07-30 09:01] LABS: MEAN CORPUSCULAR HEMOGLOBIN 29.9 pg (27.0-33.0); MEAN CORPUSCULAR HGB CONC 34.3 g/dl (32.0-36.5); MEAN CORPUSCULAR VOLUME 87.3 fl (80.0-96.0); RED CELL DISTRIBUTION WIDTH 12.1 % (11.5-14.5); WHITE BLOOD COUNT 8.4 10^3/uL (4.0-10.0)
[2017-07-30 09:20] LABS: ANION GAP 5 MEQ/L (8-16); BLOOD UREA NITROGEN 15 MG/DL (7-18); CALCIUM LEVEL 9.3 MG/DL (8.5-10.1); CARBON DIOXIDE LEVEL 30 MEQ/L (21-32); CHLORIDE LEVEL 105 MEQ/L (98-107); CREATININE FOR GFR 1.38 MG/DL (0.70-1.30); GLOMERULAR FILTRATION RATE > 60.0 (>60); GLUCOSE, FASTING 115 MG/DL (70-105); POTASSIUM SERUM 4.1 MEQ/L (3.5-5.1); SODIUM LEVEL 140 MEQ/L (136-145)
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
[2017-07-30 18:00] VITALS: BP 123/62
--- NOTE | 2017-07-30 22:49 | ECGEPIP ---
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 No significant change compared with 10/23/2016. Electronically Signed On 07-30-2017 22:49:17 EDT by Darrel Busby
[2017-07-30] MEDS: QUEtiapine FUMARATE 25 MG TAB PO PRN (23:03)
[2017-07-31 07:00] VITALS: BP 121/59
[2017-07-31 07:33] LABS: ANION GAP 7 MEQ/L (8-16); BLOOD UREA NITROGEN 14 MG/DL (7-18); CALCIUM LEVEL 9.1 MG/DL (8.5-10.1); CARBON DIOXIDE LEVEL 28 MEQ/L (21-32); CHLORIDE LEVEL 108 MEQ/L (98-107); CREATININE FOR GFR 1.34 MG/DL (0.70-1.30); GLOMERULAR FILTRATION RATE > 60.0 (>60); GLUCOSE, FASTING 94 MG/DL (70-105); SODIUM LEVEL 143 MEQ/L (136-145)
[2017-07-31] MEDS: SERTRALINE HCL 50 MG TAB PO SCH (08:42)
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
[2017-07-31 18:00] VITALS: BP 124/59
[2017-07-31] MEDS: QUEtiapine FUMARATE 25 MG TAB PO PRN (23:40)
[2017-08-01 07:19] VITALS: BP 120/64
[2017-08-01 07:37] LABS: ANION GAP 7 MEQ/L (8-16); BLOOD UREA NITROGEN 14 MG/DL (7-18); CALCIUM LEVEL 9.1 MG/DL (8.5-10.1); CARBON DIOXIDE LEVEL 29 MEQ/L (21-32); CHLORIDE LEVEL 105 MEQ/L (98-107); CREATININE FOR GFR 1.28 MG/DL (0.70-1.30); GLOMERULAR FILTRATION RATE > 60.0 (>60); GLUCOSE, FASTING 91 MG/DL (70-105); POTASSIUM SERUM 3.9 MEQ/L (3.5-5.1); SODIUM LEVEL 141 MEQ/L (136-145)
[2017-08-01] MEDS: SERTRALINE HCL 50 MG TAB PO SCH (09:36)
--- NOTE | 2017-08-01 15:52 | MHIPN ---
DATE: 08/01/2017 CHIEF COMPLAINT: Says feels tired. SUBJECTIVE: Seen for followup. Indicates feels tired, and that he feels somewhat drowsy, says it only started after he was put on medicines here. He is on sertraline, Abilify, Seroquel. Seroquel is at 25 mg at night to help with sleep. He used to use Ambien in the past, and Lunesta just prior to coming in. Says remains depressed, does not think he would be safe outside the hospital, has suicidal thoughts, no firm plans when he is here. MENTAL STATUS EXAMINATION: Neat, cooperative. No agitation. Coherent. Affect is restricted but reactive. Displays fair range. Denies any thoughts of harming anyone else, has suicidal thoughts, no firm plans, no psychosis. Judgment and insight questionable. ASSESSMENT: Major depressive disorder. PLAN: He is to continue with sertraline 50 mg daily, Abilify 2.5 mg daily to help augment it, and for now, we will continue with Seroquel at 25 mg at night as needed for insomnia, this is off-label use, he is aware of this. May need to consider resuming Lunesta or Ambien, has used them in the past, unless there are other contraindications. He is to be encouraged to participate in activities in the unit. Further recommendations will be made depending on the clinical picture. We will continue with current precautions.
[2017-08-01 18:28] VITALS: BP 127/70
[2017-08-01] MEDS ORDERED: ENTER DRUG NAME HERE (PATIENT'S OWN MED) PO PRN (20:45)
[2017-08-01] MEDS: QUEtiapine FUMARATE 25 MG TAB PO PRN (23:27)
[2017-08-02 06:00] VITALS: BP 117/63
[2017-08-02] MEDS: SERTRALINE HCL 50 MG TAB PO SCH (09:19)
[2017-08-02 18:00] VITALS: BP 136/66
[2017-08-02] MEDS: QUEtiapine FUMARATE 25 MG TAB PO PRN (22:30)
[2017-08-03 06:42] VITALS: BP 124/57
[2017-08-03] MEDS: SERTRALINE HCL 50 MG TAB PO SCH (08:16)
[2017-08-03] MEDS ORDERED: SERT50TA PO (08:48)
[2017-08-03] MEDS ORDERED: HYDRO50TAB PO (08:48)
[2017-08-03] MEDS ORDERED: ARIP5TA PO (08:48)
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
[2017-08-03] MEDS ORDERED: QUET1TAB7 PO (09:12)
[2017-08-03 18:00] VITALS: BP 136/65
[2017-08-03] MEDS: QUEtiapine FUMARATE 25 MG TAB PO PRN (22:07)
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
[2017-08-04 07:07] VITALS: BP 107/53
[2017-08-04] MEDS: SERTRALINE HCL 50 MG TAB PO SCH (09:08)
== END 2017-08-04 14:10 | disposition home or self-care (01) | DRG 885 ==
LOC: M ED 19:15 → M ED INP 21:00 → M PSY 23:40
PROVIDERS: ADMIT Psychiatry & Neurology Psychiatry; ATTEND Psychiatry & Neurology Psychiatry
DX: F32.2 Major depressive disorder, single episode, severe without psychotic features (principal); Z79.899 Other long term (current) drug therapy; Z88.1 Allergy status to other antibiotic agents; G47.00 Insomnia, unspecified